=== PATIENT | female | born 1970 | race Caucasian/White ===

== ENCOUNTER 2023-09-09 12:10 | Observation (INO) | payer MEDICAID, SELFPAY ==
[2023-09-09] VITALS (21 sets, daily range): BP systolic 82–146; BP diastolic 54–116; PULSE 69–91; RESP 12–32; TEMP 35.5–36.6; O2SAT 96–100; BMI 21.9
--- NOTE | 2023-09-09 12:34 | ED.RN ---
NO OLD EKG
--- NOTE | 2023-09-09 12:35 | ED.RN ---
POLICE, SOCIAL WORK, NURSES AND FILM PROCESSING SHIFT SUPERVISOR IN PATIENT'S ROOM. PATIENT SCREAMING AND KICKING. PATIENT DECLINED TO ANSWER ANY OF MY QUESTIONS FOR HER CHART. PATIENT STATES THAT THE STAFF DOESN'T CARE . SITTER AT IN ROOM.
[2023-09-09] MEDS: Activated Charcoal/Sorbitol 50 GM/240 ML BOT PO (12:44)
--- NOTE | 2023-09-09 12:46 | EX.ED.VIS.PS ---
HPI HPI - Psych History of Present Illness Chief Complaint: Suicidal Detail of Chief Complaint: Reported intentional overdose Informant: patient, police/junior systems engineer and mental health staff Onset/Context/Timing Onset: Today Context: Gradual Onset Conflict: - (Uncertain) Timing: - (Patient was somnolent when I was in the room. I was informed prior to me entering the room she was awake conversant with nurse and law enforcement.) Current Severity: Concern for malingering Relieved by: Not applicable Associated Symptoms Associated Symptoms - Psych: Positive for Depressed, Change in Eating, Change in sleeping and Suicidal Thoughts; Negative for Grandiosity, Flight of Ideas, Increased activity, Pressured Speech, Agitated, Angry, Hostile, Threatening, Confusion or Paranoia Specific plan (suicidal thought): Reportedly took 27 100 mg tablets of trazodone and potentially other meds. Narrative Narrative: Patient is a 53-year-old woman with history of depression. Per product safety officer she took 27 100 mg tablets of trazodone. Patient is not forthcoming with information. Apparently she relocated from [place]. Her therapist is in [place]. Prior similar symptoms: Yes PFSH PFSH Medical History (Updated 09/09/23 @ 14:[address] Greg Campos MD) Alcohol abuse Bipolar 1 disorder, depressed Depression Drug abuse in remission Restless leg syndrome Home Medications dextromethorphan IR 45 mg-bupropion ER 105 mg biphasic tablet (Auvelity) 1 tab PO DAILY 09/09/23 [History Last Taken Unknown] lumateperone 42 mg capsule (Caplyta) 42 mg PO DAILY 09/09/23 [History Last Taken Unknown] Allergy/AdvReac Type Severity Reaction Status Date / Time Penicillins Allergy PT UNSURE Verified 09/09/23 12:14 OF REACTION Social History (Updated 09/09/23 @ 12:[address] Greg Campos MD) household members: none Smoking Status: Current every day smoker tobacco type: cigarettes ROS ROS ED Constitutional Constitutional ED: Denies fever(s) or subjective Eyes Eyes: Denies blurry vision or change in vision Neurologic Neurologic: Reports headache(s) Psychiatric Psychiatric: Reports depression, suicidal ideation and suicidal thoughts Allergic/Immunologic Allergic/Immunologic ED: Denies mouth swelling, tongue swelling or urticaria EXAM Physical Exam Const Vital Signs: 09/09/23 12:11 09/09/23 12:14 09/09/23 12:18 Temperature 96 F L Temperature Source Temporal Pulse Rate 82 91 Respiratory Rate 32 H 18 Blood Pressure 132/116 H Blood Pressure Mean 121 Pulse Ox 100 98 Oxygen Delivery Method Room Air Room Air 09/09/23 12:50 09/09/23 13:15 09/09/23 13:31 Temperature Temperature Source Pulse Rate 78 69 80 Respiratory Rate 14 14 14 Blood Pressure 97/64 90/66 106/67 Blood Pressure Mean 75 74 80 Pulse Ox Oxygen Delivery Method 09/09/23 13:45 09/09/23 14:00 09/09/23 14:15 Temperature Temperature Source Pulse Rate 74 72 76 Respiratory Rate 14 12 12 Blood Pressure 100/63 98/67 82/54 L Blood Pressure Mean 75 77 63 Pulse Ox Oxygen Delivery Method 09/09/23 14:34 Temperature Temperature Source Pulse Rate 78 Respiratory Rate 16 Blood Pressure 92/55 L Blood Pressure Mean 67 Pulse Ox 97 Oxygen Delivery Method Room Air Positive well nourished and well developed Constitutional Narrative: Patient's hair is dyed green. Vital signs are remarkable for slight elevation of blood pressure. Blood pressure does not make sense in light of barrel and narrow pulse pressure. General Appearance ED: well developed HEENT Reports TM's clear and moist mucous membranes normocephalic and atraumatic Tympanic Membrane ED: Yes TM's clear Eyes PERRL and EOMs intact bilaterally Eyes Narrative: Patient does have nystagmus with lateral gaze. General Eye ED: Negative for pale conjunctiva or scleral icterus Neck no lymphadenopathy, supple and no JVD Resp normal respiratory effort and clear to auscultation bilaterally Cardio S1 normal heart sound, S2 normal heart sound and no murmurs Rate: regular rate Rhythm: regular rhythm GI non-tender, non-distended and no masses Auscultation: normoactive bowel sounds Palpation: soft Extremity normal to inspection Extremity Narrative: No acral cyanosis or clubbing. General Extremety ED: Negative for edema or tenderness General Extremity: Negative for edema Neuro CN's II-XII intact bilaterally and deep tendon reflexes 2+ bilaterally Annmarie Coma Scale: document GCS findings Spontaneous Obeys Commands Oriented 15 Psych cooperative, denies hallucinations and denies homicidal ideation Appearance: appropriate Attitude: calm and evasive Activity / Motor Behavior: psychomotor slowing; Negative for appropriate eye contact Speech: other Thought Process: No normal thought process Thought Content: suicidality Attention / Concentration: other Unable to determine Memory / Cognition: other Patient is evasive and not forthcoming with information. Insight: poor Judgement: poor MDM MDM MDM Narrative Medical decision making narrative: Patient was made NPO. She was placed on a monitor and pulse ox. Workup for mental health overdose was initiated. Since patient is awake and alert with a GCS of 15 she will receive activated charcoal since she reports taking the medicine 2 hours ago. Lab Data Attestation: I reviewed the patient's lab results. Lab results narrative: CBC is unremarkable. Basic metabolic panel is normal. Transaminases normal. Salicylate nondetected. Acetaminophen nondetected. Alcohol is 69. Serum test is negative. Labs: Laboratory Results - last 24 hr 09/09/23 12:25 WBC 8.4 RBC 4.51 Hgb 12.9 Hct 41.2 MCV 91.4 MCH 28.6 MCHC 31.3 L RDW Std Deviation 46.2 H RDW Coeff of Sohail 13.6 Plt Count 337 MPV 9.3 Immature Gran % (Auto) 0.200 Neut % (Auto) 60.8 Lymph % (Auto) 31.1 Price % (Auto) 6.3 Eos % (Auto) 1.2 Baso % (Auto) 0.4 Absolute Neuts (auto) 5.1 Absolute Lymphs (auto) 2.60 Nucleated RBC % 0 Sodium 139 Potassium 3.8 Chloride 110 H Carbon Dioxide 25.0 Anion Gap 4 L BUN 10 Creatinine 0.56 Estim Creat Clear Calc 86.66 Est GFR (MDRD) Af Amer 147 Est GFR (MDRD) Non-Af 121 BUN/Creatinine Ratio 18.0 Glucose 111 H Calcium 8.6 Total Bilirubin 0.30 AST 14 L ALT 17 Alkaline Phosphatase 72 Total Protein 6.6 Albumin 3.1 L Globulin 3.5 Albumin/Globulin Ratio 0.9 Serum , Qual NEGATIVE Salicylates < 1.7 L Acetaminophen < 2.0 L Ethyl Alcohol 69.0 EKG Initial EKG: Attestation: I personally reviewed and interpreted this EKG as follows: Interpretation: Sinus Rhythm (Rate is 71. QT is prolonged. GA interval is 132 ms with a QRS duration 76 ms. QT is 442 with a QTc of 480. [place] is normal.) Treatment and Re-Evaluation Narrative: I was informed that patient's blood pressure is 82/54. Review of blood pressures reveals that patient's trending downward. In light of this IV fluids were ordered. Hospitalist has been paged for admission for observation since she is not hemodynamically stable to be transferred to a psychiatric hospital. She was pink slipped by me. This will allow for a 24-hour hold. Critical Care Time Critical Care Time: Yes Critical care time (excluding procedures): 30-74 minutes (32), Including time spent: (History, physical, obtaining prescriptions from outside facility, interpretation laboratory results, treatment of hypotension, pink slip.), Discussing w/Patient &/or Family/Cold Strip Feeder, Discussing w/Consultants (Discussion with hospitalist for admission stepdown versus ICU) and Arranging Admission or Transfer Discharge Plan Dx/Rx/DC Orders Clinical Impression: Acute hypotension, Intentional overdose, Suicide attempt, Severe depression Disposition Disposition: Acute Care Hospital [facility]
--- NOTE | 2023-09-09 12:49 | CM.ED ---
Social Work SW contacted crisis to see if patient has psych services with [facility]. If patient does, a medication list could be obtained and patient has not been forthcoming with information. Pt does not have services with [facility] or any history of crisis involvement. Natacha Dent INSPECTOR METAL CAN, MUTUAL FUND ACCOUNTANT
[2023-09-09 12:54] LABS: Absolute Neutrophil Count 5.1 X10^3/uL (2.0-7.7); Basophil# 0.03 X10^3/uL; Basophil% 0.4 % (0-1); Eosinophils% 1.2 % (0-5); Hematocrit 41.2 % (37-47); Hemoglobin 12.9 g/dL (12.0-15.0); Lymphocyte % 31.1 % (19-41); Mean Corp Hgb Conc 31.3 g/dL (32-36); Mean Corpuscular Hgb 28.6 pg (27.0-32.0); Mean Corpuscular Volume 91.4 fL (81-99); Mean Platelet Vol. 9.3 fl (6.2-12.0); Monocyte# 0.53 X10^3/uL; Monocyte% 6.3 % (0-10); NRBC Flagged by Analyzer 0 % (0-5); Neutrophil # 5.09 X10^3/uL (2.7-7.7); Neutrophil % 60.8 % (47-70); Platelet Count 337 K/mm3 (150-450); RBC Distribution Width CV 13.6 % (11.6-14.6); RBC Distribution Width SD 46.2 fl (35.1-43.9); Red Blood Count 4.51 M/mm3 (4.2-5.4); White Blood Count 8.4 K/mm3 (4.4-11.0)
[2023-09-09 13:03] LABS: Internal QC Validated? YES +Cl - CLEAR BKGD; Pregnancy, Serum, hCG Quali. NEGATIVE Negative
[2023-09-09 13:13] LABS: ALB/GLOB Ratio 0.9 RATIO (0.9-2.4); AST(SGOT) 14 U/L (15-37); Alanine Aminotransfer ALT/SGPT 17 U/L (13-56); Albumin, Serum 3.1 g/dL (3.2-5.0); Alkaline Phosphatase 72 U/L (45-117); Anion Gap 4 (5-15); BUN 10 mg/dL (7-18); Calcium,Total 8.6 mg/dL (8.5-10.1); Chloride 110 mmol/L (98-107); Creatinine, Serum 0.56 mg/dL (0.55-1.02); EST Glomerular Filtration Rate 121 mL/min (>60); Est Glom Filt Rate - Afr Amer 147 mL/min (>60); Estimated Creatinine Clearance 86.66 ml/min; Globulin 3.5 g/dL (2.2-4.2); Glucose 111 mg/dL (74-106); Potassium 3.8 mmol/L (3.5-5.1); Protein, Total 6.6 g/dL (6.4-8.2); Sodium Level 139 mmol/L (136-145)
[2023-09-09 13:22] LABS: Acetaminophen (Tylenol) Level < 2.0 ug/mL (10.0-30.0); Salicylate < 1.7 mg/dL (2.8-20.0)
[2023-09-09] MEDS: 0.9% Normal Saline (1000mL) 1,000 ML 1000 ML IV (14:33)
--- NOTE | 2023-09-09 15:03 | PCM.HP.STD ---
HPI - General General Date of Admission: 09/09/23 Date of Service: 09/09/23 Chief Complaint: Intentional overdose HPI Narrative BIN ADAMS, is a 53 F with history of mood disorder and tobacco use who presented to [facility] ED 09/09/2023 due to an intentional overdose. History obtained primarily per report as patient downplaying attempt and not very forthcoming. Reportedly patient was drinking this morning and then took a handful of trazodone and her restless leg medication and texted her son that she would not be around anymore and her son found her and patient brought to hospital. In ED she was given charcoal but blood pressure continued to downtrend so she was started on IV fluids and hospitalist contacted for admission for medical stabilization prior to crisis evaluation. Patient evaluated at bedside and reports that she took trazodone earlier just to get some rest and did not know how much she took, she said she took more of her restless leg medicine than prescribed because trazodone gives her restless legs she wanted to counteract the side effect. She said that she is willing to be admitted here today however she cannot go anywhere else or she will lose her furniture and her cats and it will cause more mental health problems and she already has. Presently denies any physical complaints, does report drinking a couple of beers earlier but said she only drinks several times a week and denies any history of withdrawal or daily drinking, denies any other drug use, smokes about half a pack a day and does not want nicotine patch. Patient superficially cooperative, unable to get any other history at this time. [facility] Medical History (Updated 09/09/23 @ 14:[address] Greg Campos MD) Alcohol abuse Bipolar 1 disorder, depressed Depression Drug abuse in remission Restless leg syndrome Home Medications dextromethorphan IR 45 mg-bupropion ER 105 mg biphasic tablet (Auvelity) 1 tab PO DAILY 09/09/23 [History Last Taken Unknown] lumateperone 42 mg capsule (Caplyta) 42 mg PO DAILY 09/09/23 [History Last Taken Unknown] Allergy/AdvReac Type Severity Reaction Status Date / Time Penicillins Allergy PT UNSURE Verified 09/09/23 12:14 OF REACTION Social History (Updated 09/09/23 @ 12:[address] Greg Campos MD) household members: none Smoking Status: Current every day smoker tobacco type: cigarettes ROS ROS Narrative General: Denies fever/chills HENT: Denies headache, denies stuffy nose, denies sore throat EYES: Denies changes in vision Resp: Denies cough, denies shortness of breath Cardiac: Denies chest pain GI: Denies abdominal pain, denies changes in bowel, denies nausea/vomiting : Denies changes in urination Extremity: Denies swelling MSK: Denies weakness Neuro: Denies any numbness/tingling Heme: Denies any bleeding or bruising Skin: Denies rashes Psychiatric: Wants to go home Vital Signs Vital Signs Vital Signs: 09/09/23 12:11 09/09/23 12:14 09/09/23 12:18 Temperature 96 F L Temperature Source Temporal Pulse Rate 82 91 Respiratory Rate 32 H 18 Blood Pressure 132/116 H Blood Pressure Mean 121 Pulse Ox 100 98 Oxygen Delivery Method Room Air Room Air 09/09/23 12:50 09/09/23 13:15 09/09/23 13:31 Temperature Temperature Source Pulse Rate 78 69 80 Respiratory Rate 14 14 14 Blood Pressure 97/64 90/66 106/67 Blood Pressure Mean 75 74 80 Pulse Ox Oxygen Delivery Method 09/09/23 13:45 09/09/23 14:00 09/09/23 14:15 Temperature Temperature Source Pulse Rate 74 72 76 Respiratory Rate 14 12 12 Blood Pressure 100/63 98/67 82/54 L Blood Pressure Mean 75 77 63 Pulse Ox Oxygen Delivery Method 09/09/23 14:34 Temperature Temperature Source Pulse Rate 78 Respiratory Rate 16 Blood Pressure 92/55 L Blood Pressure Mean 67 Pulse Ox 97 Oxygen Delivery Method Room Air Weight Weight: 52.5 kg Body Mass Index (BMI) 21.9 Physical Exam Narrative General: Alert, oriented, no apparent distress HEENT: Atraumatic, normocephalic Eyes: Anicteric, normal conjunctiva, extraocular movements grossly intact Neck: Supple Respiratory: Clear to auscultation bilaterally, normal respiratory effort Cardiovascular: Regular rate and rhythm GI: Soft, nontender, nondistended Extremities: No edema Musculoskeletal: Moving all extremities Neuro: No overt focal neurological deficits Skin: No rashes appreciated Psych: Irritable, superficially cooperative, not forthcoming Results Lab / Micro Data 09/09/23 12:25 09/09/23 12:25 Labs: Laboratory Results - last 24 hr 09/09/23 12:25: WBC 8.4, RBC 4.51, Hgb 12.9, Hct 41.2, MCV 91.4, MCH 28.6, MCHC 31.3 L, RDW Std Deviation 46.2 H, RDW Coeff of Sohail 13.6, Plt Count 337, MPV 9.3, Immature Gran % (Auto) 0.200, Neut % (Auto) 60.8, Lymph % (Auto) 31.1, [place] % (Auto) 6.3, Eos % (Auto) 1.2, Baso % (Auto) 0.4, Absolute Neuts (auto) 5.1, Absolute Lymphs (auto) 2.60, Nucleated RBC % 0, Sodium 139, Potassium 3.8, Chloride 110 H, Carbon Dioxide 25.0, Anion Gap 4 L, BUN 10, Creatinine 0.56, Estim Creat Clear Calc 86.66, Est GFR (MDRD) Af Amer 147, Est GFR (MDRD) Non-Af 121, BUN/Creatinine Ratio 18.0, Glucose 111 H, Calcium 8.6, Total Bilirubin 0.30, AST 14 L, ALT 17, Alkaline Phosphatase 72, Total Protein 6.6, Albumin 3.1 L, Globulin 3.5, Albumin/Globulin Ratio 0.9, Serum , Qual NEGATIVE, Salicylates < 1.7 L, Acetaminophen < 2.0 L, Ethyl Alcohol 69.0 Assessment & Plan Assessment/Plan (1) Acute hypotension: (2) Intentional overdose: (3) Severe depression: (4) Suicide attempt: PLAN: Plan # Intentional overdose with hypotension -Patient took trazodone, roughly 27 100 mg tabs per report as well as her restless leg medication but unclear which medication that is -Given charcoal in ED -Started on IV fluids, patient reports blood pressure runs low but given its continued downtrend will admit to ICU in the event patient needs escalation of supportive care to maintain perfusion -Patient awake and alert in ED however -Did have alcohol level of 69, patient denies drinking more than several times a week however not forthcoming so started on CIWA with low-dose Ativan coverage can escalate accordingly if patient has symptoms of withdrawal -UDS pending -Continue IV fluids -Crisis evaluation, likely tomorrow if patient stable, case management consulted -EKG with normal sinus rhythm rate of 71 QTc 480 #Tobacco use -Advise cessation -Nicotine replacement available if desired # Depression -Status post intentional overdose -Will continue home medications which does not include trazodone #DVT ppx: Low risk, ambulatory Marianne Mcnulty MD Charges/Coding Visit Charges Inpatient E&M: 28402 Init Hosp L1
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
[2023-09-09 18:56] LABS: Amphetamine Urine VISTA POSITIVE (<1000 ng/mL); Barbiturate Urine VISTA NEGATIVE (< 200 ng/mL); Benzodiazepine Urine VISTA NEGATIVE (< 200 ng/mL); Cocaine Urine VISTA NEGATIVE (< 300 ng/mL); Ecstacy Urine VISTA POSITIVE (< 500 ng/mL); Methadone Urine VISTA NEGATIVE (< 300 ng/mL); PCP Urine VISTA NEGATIVE (< 25 ng/mL); THC Urine VISTA POSITIVE (< 50 ng/mL); Vista UDS pH Range 4
[2023-09-09] MEDS: Pantoprazole Sodium 40 MG Tablet PO (21:46)
[2023-09-09] MEDS: MELATONIN 3 MG TABLET PO (21:46)
[2023-09-09] MEDS: Mag Hydrox/Al Hydrox/Simeth 30 ML UDC PO (21:46)
[2023-09-09] MEDS: Ibuprofen 600 MG Tablet PO (23:31)
[2023-09-10] VITALS (13 sets, daily range): BP systolic 90–146; BP diastolic 62–84; PULSE 64–90; RESP 13–20; TEMP 36.6–37.1; O2SAT 95–99; BMI 21.4
[2023-09-10 05:09] LABS: Absolute Lymphocyte Count 3.52 X10^3/uL (0.83-4.51); Absolute Neutrophil Count 4.7 X10^3/uL (2.0-7.7); Basophil# 0.04 X10^3/uL; Basophil% 0.4 % (0-1); Eosinophil# 0.12 X10^3/uL; Eosinophils% 1.3 % (0-5); Hematocrit 37.3 % (37-47); Hemoglobin 11.8 g/dL (12.0-15.0); Lymphocyte # 3.52 X10^3/ul (0.83-4.51); Lymphocyte % 38.2 % (19-41); Mean Corp Hgb Conc 31.6 g/dL (32-36); Mean Corpuscular Hgb 28.9 pg (27.0-32.0); Mean Corpuscular Volume 91.4 fL (81-99); Mean Platelet Vol. 8.7 fl (6.2-12.0); Monocyte# 0.86 X10^3/uL; Monocyte% 9.3 % (0-10); NRBC Flagged by Analyzer 0 % (0-5); Neutrophil # 4.65 X10^3/uL (2.7-7.7); Neutrophil % 50.6 % (47-70); Platelet Count 338 K/mm3 (150-450); RBC Distribution Width CV 13.8 % (11.6-14.6); RBC Distribution Width SD 46.5 fl (35.1-43.9); Red Blood Count 4.08 M/mm3 (4.2-5.4); White Blood Count 9.2 K/mm3 (4.4-11.0)
[2023-09-10 05:41] LABS: ALB/GLOB Ratio 0.8 RATIO (0.9-2.4); AST(SGOT) 14 U/L (15-37); Alanine Aminotransfer ALT/SGPT 20 U/L (13-56); Albumin, Serum 2.7 g/dL (3.2-5.0); Alkaline Phosphatase 69 U/L (45-117); Anion Gap 2 (5-15); BUN 7 mg/dL (7-18); BUN/Creat Ratio 9.9 RATIO (10-20); Calcium,Total 8.1 mg/dL (8.5-10.1); Chloride 110 mmol/L (98-107); Creatinine, Serum 0.71 mg/dL (0.55-1.02); EST Glomerular Filtration Rate 92 mL/min (>60); Est Glom Filt Rate - Afr Amer 111 mL/min (>60); Estimated Creatinine Clearance 68.35 ml/min; Globulin 3.3 g/dL (2.2-4.2); Glucose 140 mg/dL (74-106); Potassium 3.4 mmol/L (3.5-5.1); Sodium Level 138 mmol/L (136-145)
--- NOTE | 2023-09-10 07:26 | PN.HOSP_ITS ---
Reason for Visit Reason for Visit: Diagnoses Major depressive disorder, single episode, severe without psychotic features (0 09/09/23) Hypotension, unspecified (09/09/23) Suicide attempt, initial encounter (09/09/23) Poisoning by unspecified drugs, medicaments and biological substances, intentional self-harm, initial encounter (09/09/23) Subjective Subjective Patient is a 53-year-old lady with history of mood disorder admitted with intentional drug overdose Objective Data Objective Data Vital Signs: Vital Signs Temp Pulse Resp BP Pulse Ox O2 Del Method O2 Flow Rate 98.2 F 67 15 115/76 95 Room Air 2 09/10/23 04:00 09/10/23 07:00 09/10/23 07:00 09/10/23 07:00 09/10/23 07:00 09/10/23 07:00 09/10/23 00:00 Oxygen Flow Rate (L/min) 2 Oxygen Delivery Method Room Air Weight: 51.6 kg Body Mass Index (BMI) 21.4 Intake & Output: Intake and Output for Last 24 Hours 09/08/23 09/09/23 09/10/23 23:59 23:59 23:59 Intake Total 1550 / 1670 760 / 760 Output Total 0 / 0 700 / 700 Balance 1550 / 1670 60 / 60 Lab / Micro Data 09/10/23 04:55 09/10/23 04:55 Labs: Laboratory Results - last 24 hr 09/09/23 12:25: WBC 8.4, RBC 4.51, Hgb 12.9, Hct 41.2, MCV 91.4, MCH 28.6, MCHC 31.3 L, RDW Std Deviation 46.2 H, RDW Coeff of Sohail 13.6, Plt Count 337, MPV 9.3, Immature Gran % (Auto) 0.200, Neut % (Auto) 60.8, Lymph % (Auto) 31.1, [place] % (Auto) 6.3, Eos % (Auto) 1.2, Baso % (Auto) 0.4, Absolute Neuts (auto) 5.1, Absolute Lymphs (auto) 2.60, Nucleated RBC % 0, Sodium 139, Potassium 3.8, Chloride 110 H, Carbon Dioxide 25.0, Anion Gap 4 L, BUN 10, Creatinine 0.56, Estim Creat Clear Calc 86.66, Est GFR (MDRD) Af Amer 147, Est GFR (MDRD) Non-Af 121, BUN/Creatinine Ratio 18.0, Glucose 111 H, Calcium 8.6, Total Bilirubin 0.3 0, AST 14 L, ALT 17, Alkaline Phosphatase 72, Total Protein 6.6, Albumin 3.1 L, Globulin 3.5, Albumin/Globulin Ratio 0.9, Serum , Qual NEGATIVE, Salicylates < 1.7 L, Acetaminophen < 2.0 L, Ethyl Alcohol 69.0 09/09/23 17:49: Urine Opiates Screen NEGATIVE, Urine Methadone Screen NEGATIVE, Ur Barbiturates Screen NEGATIVE, Ur Phencyclidine Scrn NEGATIVE, Ur Amphetamines Screen POSITIVE H, MDMA (Ecstasy) Screen POSITIVE H, U Benzodiazepines Scrn NEGATIVE, Urine Cocaine Screen NEGATIVE, U Cannabinoids Screen POSITIVE H, Ur Drug Screen Comment 09/10/23 04:55: WBC 9.2, RBC 4.08 L, Hgb 11.8 L, Hct 37.3, MCV 91.4, MCH 28.9, M CHC 31.6 L, RDW Std Deviation 46.5 H, RDW Coeff of Sohail 13.8, Plt Count 338, MPV 8.7, Immature Gran % (Auto) 0.200, Neut % (Auto) 50.6, Lymph % (Auto) 38.2, [place] % (Auto) 9.3, Eos % (Auto) 1.3, Baso % (Auto) 0.4, Absolute Neuts (auto) 4.7, Absolute Lymphs (auto) 3.52, Nucleated RBC % 0, Sodium 138, Potassium 3.4 L, Chloride 110 H, Carbon Dioxide 26.0, Anion Gap 2 L, BUN 7, Creatinine 0.71, Estim Creat Clear Calc 68.35, Est GFR (MDRD) Af Amer 111, Est GFR (MDRD) Non-Af 92, BUN/Creatinine Ratio 9.9 L, Glucose 140 H, Calcium 8.1 L, Total Bilirubin 0.20, AST 14 L, ALT 20, Alkaline Phosphatase 69, Total Protein 6.0 L, Albumin 2.7 L, Globulin 3.3, Albumin/Globulin Ratio 0.8 L Physical Exam Narrative GENERAL: Appears agitated HEENT: Swelling involving the right cheek EYES; Anicteric, Normal Conjunctiva NECK; supple, normal thyroid, RESPIRATORY: Diminished to auscultation CARDIOVASCULAR: Regular S1 S2, GI: soft, normoactive bowel sounds, : No Renal angle tenderness; EXTREMITIES: No edema, no clubbing, MUSCULOSKELETAL: no muscle wasting NEURO: Awake; no lateralizing signs. SKIN: No Rash PSYCH; Flat affect Assessment & Plan Assessment/Plan (1) Acute hypotension: (2) Intentional overdose: (3) Severe depression: (4) Suicide attempt: PLAN: Plan Patient is a 53-year-old lady with history of mood disorder admitted with intentional drug overdose 1. Intentional drug overdose ? Patient apparently took 27 tablets of 100 mg of trazodone. Patient did receive activated charcoal in the ED started on IV fluids admitted to the intensive care unit for further management 2. Acute alcohol intoxication ? Alcohol level was 69 patient started on Ativan with CIWA protocol 3. Dental abscess ? Patient started on Augmentin 4. Depression ? Intentional drug overdose 5. Tobacco dependence - Counseled on cessation, offered nicotine patch for tobacco cravings 6. Hypokalemia -Corrected per protocol 7. DVT prophylaxis ? Low risk Patient is medically stable to be evaluated by the crisis team Time spent in the patient's overall evaluation,decision-making process, review of diagnostic data, adjustment of management, discussion with other providers, nursing nursing and ancillary staff involved in patient's care documentation, 50 Minutes Charges/Coding Visit Charges Inpatient E&M: 58987 [facility] Hosp L3
[2023-09-10] MEDS: Ibuprofen 400 MG Tablet PO ×2 (09:33→14:17)
[2023-09-10] MEDS: Pantoprazole Sodium 40 MG Tablet PO (09:33)
--- NOTE | 2023-09-10 16:58 | DS.PCM_ITS ---
Providers Date of Admission: 09/09/23 Date of Discharge: 09/10/23 Primary Care Physician: No Primary Care Phys Reason For Visit: INTENTIONAL OVERDOSE Diagnosis Discharge Diagnosis (1) Acute hypotension: Status: Acute Code(s): I95.9 - Hypotension, unspecified (2) Intentional overdose: Status: Acute Code(s): T50.902A - Poisoning by unspecified drugs, medicaments and biological substances, intentional self-harm, initial encounter (3) Severe depression: Status: Acute Code(s): F32.2 - Major depressive disorder, single episode, severe without psychotic features (4) Suicide attempt: Status: Acute Code(s): T14.91XA - Suicide attempt, initial encounter Plan Patient is a 53-year-old lady with history of mood disorder admitted with intentional drug overdose 1. Intentional drug overdose ? Patient apparently took 27 tablets of 100 mg of trazodone. Patient did receive activated charcoal in the ED started on IV fluids admitted to the intensive care unit for further management 2. Acute alcohol intoxication ? Alcohol level was 69 patient started on Ativan with CIWA protocol 3. Dental abscess ? Patient started on Augmentin 4. Depression ? Intentional drug overdose 5. Tobacco dependence - Counseled on cessation, offered nicotine patch for tobacco cravings 6. Hypokalemia -Corrected per protocol 7. DVT prophylaxis ? Low risk Patient is medically stable to be evaluated by the crisis team Time spent in the patient's overall evaluation,decision-making process, review of diagnostic data, adjustment of management, discussion with other providers, nursing nursing and ancillary staff involved in patient's care documentation, 50 Minutes Medications at Discharge Home Medications dextromethorphan IR 45 mg-bupropion ER 105 mg biphasic tablet (Auvelity) 1 tab PO DAILY 09/09/23 famotidine 20 mg tablet 20 mg PO DAILY heartburn 09/09/23 lumateperone 42 mg capsule (Caplyta) 42 mg PO DAILY 09/09/23 pramipexole 1 mg tablet 1 mg PO QHS restless leg 09/09/23 trazodone 100 mg tablet 100 mg PO QHS PRN insomnia 09/09/23 Physical Exam Narrative GENERAL: Appears agitated HEENT: Swelling involving the right cheek EYES; Anicteric, Normal Conjunctiva NECK; supple, normal thyroid, RESPIRATORY: Diminished to auscultation CARDIOVASCULAR: Regular S1 S2, GI: soft, normoactive bowel sounds, : No Renal angle tenderness; EXTREMITIES: No edema, no clubbing, MUSCULOSKELETAL: no muscle wasting NEURO: Awake; no lateralizing signs. SKIN: No Rash PSYCH; Flat affect Weight / BMI Weight Weight: 51.6 kg Body Mass Index (BMI) 21.4 ABG / Lab / Microbiology Data 09/10/23 04:55 09/10/23 04:55 Laboratory: Laboratory Results - last 24 hr 09/09/23 17:49: Urine Opiates Screen NEGATIVE, Urine Methadone Screen NEGATIVE, Ur Barbiturates Screen NEGATIVE, Ur Phencyclidine Scrn NEGATIVE, Ur Amphetamines Screen POSITIVE H, MDMA (Ecstasy) Screen POSITIVE H, U Benzodiazepines Scrn NEG ATIVE, Urine Cocaine Screen NEGATIVE, U Cannabinoids Screen POSITIVE H, Ur Drug Screen Comment 09/10/23 04:55: WBC 9.2, RBC 4.08 L, Hgb 11.8 L, Hct 37.3, MCV 91.4, MCH 28.9, MCHC 31.6 L, RDW Std Deviation 46.5 H, RDW Coeff of Sohail 13.8, Plt Count 338, MPV 8.7, Immature Gran % (Auto) 0.200, Neut % (Auto) 50.6, Lymph % (Auto) 38.2, [place] % (Auto) 9.3, Eos % (Auto) 1.3, Baso % (Auto) 0.4, Absolute Neuts (auto) 4.7, Absolute Lymphs (auto) 3.52, Nucleated RBC % 0, Sodium 138, Potassium 3.4 L, Chloride 110 H, Carbon Dioxide 26.0, Anion Gap 2 L, BUN 7, Creatinine 0.71, Estim Creat Clear Calc 68.35, Est GFR (MDRD) Af Amer 111, Est GFR (MDRD) Non-Af 92, BUN/Creatinine Ratio 9.9 L, Glucose 140 H, Calcium 8.1 L, Total Bilirubin 0.20, AST 14 L, ALT 20, Alkaline Phosphatase 69, Total Protein 6.0 L, Albumin 2.7 L, Globulin 3.3, Albumin/Globulin Ratio 0.8 L Microbiology: Microbiology 09/10/23 15:15 Nasal Secretion SARS-CoV-2 Antigen (Rapid) - Final D/C Instructions Discharge Diet: No restrictions Discharge Activity: Return to Normal Activity Call your doctor if you observe: Fever of 101 or Higher, Shortness of breath, Fainting spells and Chest pain Meaningful Use Info Meaningful Use Diagnoses (Choose all that apply): None applicable Discharge Plan Admission Admit Date/Time: 09/09/23 15:03 Attending Provider: Brian Worthington Primary Care Provider: Care Physician,No Primary Consulting Providers: Marianne Mcnulty Discharge Orders/Prescriptions Prescriptions: No Action Auvelity 45-105 mg tablet, IR and ER, biphasic 1 tab PO DAILY Patient Comments: TAKE ONE TABLET BY MOUTH EVERY MORNING Caplyta 42 mg capsule 42 mg PO DAILY Patient Comments: TAKE ONE TABLET BY MOUTH EVERY MORNING trazodone 100 mg tablet 100 mg PO QHS PRN (Reason: insomnia) famotidine 20 mg tablet 20 mg PO DAILY Patient Comments: take 1 tablet by mouth twice a day pramipexole 1 mg tablet 1 mg PO QHS Patient Comments: take 1 tablet by mouth nightly Referrals / Follow Up: Care Physician,No Primary [Primary Care Provider] - Disposition Disposition (needs filled in before D/C Order can be placed): [facility] Charges/Coding Visit Charges Inpatient E&M: 73441 Disch Hosp >30min
--- NOTE | 2023-09-10 22:45 | NURSING ---
Addendum entered by Viktoria Colorado 09/11/23 00:21: Time of event 2330, not 2245. Original Note: Pt becoming increasingly agitated, yelling and manically crying. Sitter at bedside. Multiple attempts w/ security and staff members to redirect pt which were unsuccessful. Pt observed on camera to kick the bedside table over, punch and kick the bed, shake the side rails, and hit the bedside monitor. Multiple staff members and security in room, pt verbally abusive to staff.
--- NOTE | 2023-09-10 22:48 | NURSING ---
Addendum entered by Viktoria Colorado 09/11/23 00:22: Pt updated after phone call that her boyfriend stated her cats were being taken care of. Original Note: Pt asking to call her boyfriend to make sure that her cats were taken care of since she had received a 3 day notice of needing to leave. Pt given her phone to retrieve the phone number for her boyfriend Lesvia. Pt informed that she has a bed at [facility]. Security on unit as well. Pt asked that Lesvia be informed of her going to [facility]. Lesvia called and informed of pt status and acknowledged that pt's cats were safe and being taken care of.
--- NOTE | 2023-09-11 01:51 | NURSING ---
[facility] arrived, pt loaded onto coat with belongings given to transport team. [facility] called and updated on new ETA.
== END 2023-09-11 01:50 | DRG 817 ==
LOC: ED 14:59 → ICU 09-10 07:10
PROVIDERS: Admitting Provider Internal Medicine; Emergency Provider Emergency Medicine; Visit Provider Internal Medicine
DX: T43.212A Poisoning by selective serotonin and norepinephrine reuptake inhibitors, intentional self-harm, initial encounter (principal); F32.2 Major depressive disorder, single episode, severe without psychotic features; T51.92XA Toxic effect of unspecified alcohol, intentional self-harm, initial encounter; I95.2 Hypotension due to drugs; G25.81 Restless legs syndrome; K04.7 Periapical abscess without sinus; E87.6 Hypokalemia; F17.210 Nicotine dependence, cigarettes, uncomplicated; Y90.3 Blood alcohol level of 60-79 mg/100 ml
CPT/HCPCS: 80053; 80307; 80320; 80329; 84703; 85025; 87811; 93005; 96360; 96361; 99221; 99285; J7030; A4216; G0378; G0480

== ENCOUNTER 2023-12-13 04:51 | Emergency (ER) | payer MEDICAID, SELFPAY ==
[2023-12-13 04:52] VITALS: BP 151/86; PULSE 85; RESP 16; TEMP 36.4; O2SAT 99; BMI 22.8
--- NOTE | 2023-12-13 06:43 | EX.ED.VIS.UR ---
HPI HPI - URI History of Present Illness Chief Complaint: Ear Problem Informant: patient Onset/Context/Timing Onset: Days (2) Context: Sudden Onset Timing: Waxes and wanes Quality: Sharp, aching Location: Right ear Worsened by: - (Nothing) Relieved by: - (Applying pressure to her right ear) Associated Symptoms Associated Symptoms: Positive for Headache; Negative for Nasal Congestion, Sinus Pressure, Myalgias, Nausea, Vomiting, Diarrhea, Shortness of Breath, Chest Pain, Nonproductive cough, Hemoptysis or Productive Cough Narrative Narrative: Patient presents with right ear pain that has been getting worse over the past 2 days. Patient states it began rather suddenly. Patient states it has been waxing and waning over the past 2 days. Patient describes it as sharp and aching. Patient states it is localized to the right ear. Patient states it is better when she is able to put some pressure onto her right ear. Patient states nothing makes it worse. Patient admits to some subjective chills. Patient admits to some nausea. Patient states her pain radiates into her neck. Patient denies any cough. ROS ROS ED Constitutional Constitutional ED: Reports chills; Denies fever(s) Eyes Eyes: Reports blurry vision; Denies diplopia ENT ENT ED: Reports ear pain right; Denies rhinorrhea or sore throat Cardiovascular Cardiovascular: Denies chest pain or palpitations Respiratory/Chest Respiratory/Chest: Denies cough or dyspnea Gastrointestinal Gastrointestinal: Reports nausea; Denies vomiting Genitourinary Genitourinary ED: Denies dysuria or hematuria Musculoskeletal Musculoskeletal: Reports neck pain; Denies back pain Integumentary Denies abscess or rash Neurologic Neurologic: Reports headache(s); Denies weakness Allergic/Immunologic Allergic/Immunologic ED: Denies mouth swelling or urticaria [facility] Medical History (Updated 12/13/23 @ 06:[address] Patricio Petersen, DO) Alcohol abuse Bipolar 1 disorder, depressed Depression Drug abuse in remission Restless leg syndrome Home Medications dextromethorphan IR 45 mg-bupropion ER 105 mg biphasic tablet (Auvelity) 1 tab PO DAILY 09/09/23 [History Last Taken Unknown] lumateperone 42 mg capsule (Caplyta) 42 mg PO DAILY 09/09/23 [History Last Taken Unknown] pramipexole 1 mg tablet 1 mg PO QHS restless leg 09/09/23 [History Last Taken 09/09/23] azithromycin 250 mg tablet 250 mg PO DAILY #4 TABLETS 12/13/23 [Rx Last Taken Unknown] Allergy/AdvReac Type Severity Reaction Status Date / Time Penicillins Allergy PT UNSURE Verified 09/09/23 12:14 OF REACTION acetaminophen [From Tylenol] AdvReac Mild Other Verified 09/09/23 23:18 aspirin AdvReac Mild Other Verified 09/09/23 23:18 Surgical History (Updated 12/13/23 @ 06:[address] Patricio Petersen DO) History of endometrial ablation Hx of hemorrhoidectomy Hx of inguinal herniorrhaphy Hx of tonsillectomy Social History household members: none Smoking Status: Current every day smoker tobacco type: cigarettes EXAM Physical Exam Const Vital Signs: 12/13/23 04:52 Temperature 97.6 F L Temperature Source Oral Pulse Rate 85 Respiratory Rate 16 Blood Pressure 151/86 H Blood Pressure Mean 107 Pulse Ox 99 Positive well nourished and well developed General Appearance ED: well developed and NAD HEENT Reports moist mucous membranes HEENT Narrative: The right tympanic membrane was erythematous and bulging. Left tympanic membrane was clear. normocephalic Throat: posterior oropharynx normal Eyes PERRL and EOMs intact bilaterally Neck supple, no meningeal signs and no JVD Neuro oriented x3, CN's II-XII intact bilaterally and no sensory deficits noted Sensorium / Orientation: alert Motor Exam: strength 5/5 throughout Psych mental status grossly normal MDM MDM MDM Narrative Medical decision making narrative: Patient was advised that she has right otitis media. Patient was given a dose of Zithromax here. Patient was given a prescription for Zithromax. Patient was instructed to follow-up with her primary care physician in 5 to 7 days. Patient was instructed return if worse in any way. Patient was instructed to take ibuprofen as needed for pain. Patient understood and was agreeable with the plan. All questions were answered. Discharge Plan Triage Chief Complaint: Ear Problem ED Provider: Patricio Petersen Dx/Rx/DC Orders Clinical Impression: Acute right otitis media, Tobacco use disorder Instructions: ED Otitis Media Adult Prescriptions: New azithromycin [azithromycin] 250 mg tablet 250 mg PO DAILY Qty: 4 0RF No Action Auvelity 45-105 mg tablet, IR and ER, biphasic 1 tab PO DAILY Patient Comments: TAKE ONE TABLET BY MOUTH EVERY MORNING Caplyta 42 mg capsule 42 mg PO DAILY Patient Comments: TAKE ONE TABLET BY MOUTH EVERY MORNING pramipexole 1 mg tablet 1 mg PO QHS Patient Comments: take 1 tablet by mouth nightly Primary Care Provider: Care Physician,No Primary Referrals: Gloria Cesar [Non-Staff] - 5-7 Days Care Physician,No Primary [Primary Care Provider] - Disposition Disposition: Home, Self Care
[2023-12-13 07:01] VITALS: BP 113/76; PULSE 87; RESP 16; TEMP 36.7; O2SAT 97
[2023-12-13] MEDS: Azithromycin 250 MG Tablet 500 MG PO (07:03)
== END 2023-12-13 07:04 | disposition home or self-care (01) ==
PROVIDERS: Emergency Provider Emergency Medicine; Visit Provider Emergency Medicine
DX: H66.91 Otitis media, unspecified, right ear (principal); R51.9 Headache, unspecified; M54.2 Cervicalgia; F17.210 Nicotine dependence, cigarettes, uncomplicated; Z79.899 Other long term (current) drug therapy
CPT/HCPCS: 99282

== ENCOUNTER 2024-01-27 19:42 | Emergency (ER) | payer MEDICAID, SELFPAY ==
[2024-01-27 19:44] VITALS: BP 97/76; PULSE 90; RESP 20; TEMP 36.6; O2SAT 97
--- NOTE | 2024-01-27 20:28 | EX.ED.DYSGE1 ---
HPI History of Present Illness Chief Complaint: Med Refill Detail of Chief Complaint: Requesting medication refill Informant: patient Narrative Narrative: Patient requesting a refill on her restless leg medication pramipexole. Patient states that she ran out 2 days ago. Patient moved to the area recently and does not have a primary care physician established. Patient has been dealing with this since 2004. Denies any other complaints. [facility] Medical History (Updated 01/27/24 @ 20:[address] Yoana Pierson, DO) Restless leg syndrome Alcohol abuse Drug abuse in remission Depression Bipolar 1 disorder, depressed Home Medications ?Medication ?Instructions ?Recorded ?Last Taken ?Type dextromethorphan IR 45 1 tab PO DAILY 09/09/23 Unknown History mg-bupropion ER 105 mg biphasic tablet (Auvelity) lumateperone 42 mg capsule 42 mg PO DAILY 09/09/23 Unknown History (Caplyta) pramipexole 1 mg tablet 1 mg PO QHS restless leg 09/09/23 09/09/23 History azithromycin 250 mg tablet 250 mg PO DAILY #4 TABLETS 12/13/23 Unknown Rx pramipexole 1 mg tablet 1 mg PO QHS #30 tabs 01/27/24 Unknown Rx Allergy/AdvReac Type Severity Reaction Status Date / Time Penicillins Allergy PT UNSURE Verified 01/27/24 19:44 OF REACTION acetaminophen (From Tylenol) AdvReac Mild Other Verified 01/27/24 19:44 aspirin AdvReac Mild Other Verified 01/27/24 19:44 Surgical History Hx of tonsillectomy Hx of inguinal herniorrhaphy Hx of hemorrhoidectomy History of endometrial ablation Social History household members: none Smoking Status: Current every day smoker tobacco type: cigarettes ROS ROS ED Review of Systems ROS Unobtainable: other Constitutional Constitutional ED: Reports lethargy; Denies chills, fever(s), sweats or weight loss Eyes Eyes: Denies blurry vision, change in vision or diplopia ENT ENT ED: Denies rhinorrhea or sore throat Cardiovascular Cardiovascular: Denies chest pain, orthopnea or racing heartbeat Respiratory/Chest Respiratory/Chest: Denies cough, dyspnea, dyspnea on exertion, orthopnea or sputum Gastrointestinal Gastrointestinal: Denies abdominal pain, diarrhea, nausea or vomiting Genitourinary Genitourinary ED: Denies dysuria, hematuria or urinary frequency Musculoskeletal Musculoskeletal: Denies arthralgias, back pain, myalgias or neck pain Integumentary Denies abscess, Abrasions or rash Neurologic Neurologic: Reports other Details: Restless legs ; Denies headache(s) or weakness Psychiatric Psychiatric: Denies anxiety, depression or suicidal thoughts Endocrine Endocrinology: Denies polydipsia, polyphagia or polyuria Hematologic/Lymphatic Hematologic/Lymphatic: Denies easy bleeding, easy bruising or lymphadenopathy Allergic/Immunologic Allergic/Immunologic ED: Denies mouth swelling, tongue swelling or urticaria EXAM Physical Exam Const Vital Signs: 01/27/24 19:44 Temperature 97.9 F Temperature Source Temporal Pulse Rate 90 Respiratory Rate 20 H Blood Pressure 97/76 Blood Pressure Mean 83 Pulse Ox 97 Oxygen Delivery Method Room Air Positive well nourished and well developed General Appearance ED: well developed and NAD HEENT Reports TM's clear and moist mucous membranes normocephalic and atraumatic; Negative for trauma or tenderness Tympanic Membrane ED: Yes TM's clear Eyes PERRL and EOMs intact bilaterally General Eye ED: Negative for pale conjunctiva or scleral icterus Neck no lymphadenopathy, supple and no JVD General: Negative for tenderness Chest Wall inspection of chest normal and palpation of chest normal Chest: Negative for tenderness Resp normal respiratory effort and clear to auscultation bilaterally Effort and Inspection: Negative for respiratory distress or pain with movement Auscultation: Negative for rhonchi, wheezes or diminished lung sounds Cardio regular rate, regular rhythm, S1 normal heart sound, S2 normal heart sound and no murmurs Peripheral Pulses: pulses 2+ throughout GI normal to inspection, nondistended, normoactive bowel sounds, soft to palpation, non-tender, non-distended and no masses Back/Spine no CVA tenderness and no thoracic nor lumbar tenderness Extremity normal to inspection Extremity Narrative: Legs constantly moving and restless. General Extremety ED: Negative for edema General Extremity: Negative for edema Neuro oriented x3, CN's II-XII intact bilaterally, no sensory deficits noted and gait normal Sensorium / Orientation: awake, alert, oriented to person, oriented to place and oriented to time Motor Exam: strength 5/5 throughout and strength abnormal Psych mental status grossly normal Skin no rashes or lesions noted and no wounds MDM MDM MDM Narrative Medical decision making narrative: Patient presents to the emergency department with restless legs. Ran out of her medications 2 days ago. I will write her a prescription for the pramipexole. Patient will be referred to primary care physician on-call for no doc for follow-up. Discharge Plan Triage Chief Complaint: Med Refill ED Provider: Yoana Pierson Dx/Rx/DC Orders Clinical Impression: Restless leg syndrome Instructions: RLS, Med Refill Prescriptions: New pramipexole 1 mg tablet 1 mg PO QHS Qty: 30 0RF No Action azithromycin 250 mg tablet 250 mg PO DAILY Qty: 4 0RF Auvelity 45-105 mg tablet, IR and ER, biphasic 1 tab PO DAILY Patient Comments: TAKE ONE TABLET BY MOUTH EVERY MORNING Caplyta 42 mg capsule 42 mg PO DAILY Patient Comments: TAKE ONE TABLET BY MOUTH EVERY MORNING pramipexole 1 mg tablet 1 mg PO QHS Patient Comments: take 1 tablet by mouth nightly Primary Care Provider: Care Physician,No Primary Referrals: Patricio Vega MD [Med Staff - Pesticide Control Inspector] - 3-5 Days Care Physician,No Primary [Primary Care Provider] - Print Language: [place] Disposition Disposition: Home, Self Care
== END 2024-01-27 20:44 | disposition home or self-care (01) ==
LOC: ED 20:33
PROVIDERS: Emergency Provider Emergency Medicine; Visit Provider Emergency Medicine
DX: G25.81 Restless legs syndrome (principal); Z76.0 Encounter for issue of repeat prescription; F17.210 Nicotine dependence, cigarettes, uncomplicated; Z79.899 Other long term (current) drug therapy
CPT/HCPCS: 99282

== ENCOUNTER 2024-01-28 23:04 | Emergency (ER) | payer MEDICAID, SELFPAY ==
[2024-01-28 23:05] VITALS: BP 125/90; PULSE 87; RESP 16; TEMP 36.6; O2SAT 97; BMI 22.1
--- NOTE | 2024-01-28 23:25 | EKG12_ITS ---
Test Reason : ABD PAIN Blood Pressure : / mmHG Vent. Rate : 069 BPM Atrial Rate : 069 BPM P-R Int : 118 ms QRS Dur : 068 ms QT Int : 402 ms P-R-T Axes : 067 032 040 degrees QTc Int : 430 ms Normal sinus rhythm Normal ECG Confirmed by Ramy Braun ([id number]), assistant production editor ELISHA CANADA ([id number]) on 01/30/2024 7:46:06 AM Referred By: Confirmed By:Ramy Braun
--- NOTE | 2024-01-28 23:26 | EDS_ITS ---
HPI HPI - GI History of Present Illness Chief Complaint: Nausea/Vomiting Narrative Narrative: 53-year-old female presenting with nausea, vomiting. She states she has chest pain which is burning in her epigastrium. She states she was actually here yesterday for pramipexole for her restless legs which is a chronic issue and before she was leaving she started to feel like she was nauseous but did not want to stay for an evaluation. She states she has been dealing with this since yesterday. The only thing she can remember eating yesterday was peanut butter and a couple of yogurts. Patient states that she only vomited the peanut butter and yogurt stay down. She has been able to drink fluids. Patient states last night she had lasagna which made her stomach burn worse. She also states that about 2 hours ago she had some macaroni and cheese. All of this stay down and she states she is vomiting stomach acid. No hematemesis. No diarrhea. Patient denies any cardiac history. [facility] Medical History Restless leg syndrome Alcohol abuse Drug abuse in remission Depression Bipolar 1 disorder, depressed Home Medications ?Medication ?Instructions ?Recorded ?Last Taken ?Type dextromethorphan IR 45 1 tab PO DAILY 09/09/23 Unknown History mg-bupropion ER 105 mg biphasic tablet (Auvelity) lumateperone 42 mg capsule 42 mg PO DAILY 09/09/23 Unknown History (Caplyta) pramipexole 1 mg tablet 1 mg PO QHS restless leg 09/09/23 09/09/23 History azithromycin 250 mg tablet 250 mg PO DAILY #4 TABLETS 12/13/23 Unknown Rx pramipexole 1 mg tablet 1 mg PO QHS #30 tabs 01/27/24 Unknown Rx ondansetron 4 mg disintegrating 4 mg PO Q8H PRN PRN Nausea #14 tabs 01/29/24 Unknown Rx tablet Allergy/AdvReac Type Severity Reaction Status Date / Time Penicillins Allergy PT UNSURE Verified 01/28/24 23:08 OF REACTION acetaminophen (From Tylenol) AdvReac Mild Other Verified 01/28/24 23:08 aspirin AdvReac Mild Other Verified 01/28/24 23:08 Surgical History Hx of tonsillectomy Hx of inguinal herniorrhaphy Hx of hemorrhoidectomy History of endometrial ablation Social History household members: none Smoking Status: Current every day smoker tobacco type: cigarettes ROS ROS ED Constitutional Constitutional ED: Denies chills, fever(s) or sweats Eyes Eyes: Denies blurry vision or change in vision ENT ENT ED: Denies ear pain or sore throat Cardiovascular Cardiovascular: Reports chest pain; Denies palpitations or racing heartbeat Respiratory/Chest Respiratory/Chest: Reports dyspnea; Denies cough or sputum Gastrointestinal Gastrointestinal: Reports abdominal pain, nausea and vomiting; Denies co nstipation or diarrhea Genitourinary Genitourinary ED: Denies dysuria, hematuria or urinary frequency Musculoskeletal Musculoskeletal: Denies arthralgias, myalgias or neck pain Integumentary Denies abscess, Abrasions or rash Neurologic Neurologic: Denies headache(s), paresthesias or weakness Psychiatric Psychiatric: Denies anxiety, depression, suicidal ideation or suicidal thoughts Endocrine Endocrinology: Denies polydipsia or polyuria EXAM Physical Exam Const Vital Signs: 01/28/24 23:05 01/29/24 00:58 Temperature 97.8 F Temperature Source Temporal Pulse Rate 87 62 Respiratory Rate 16 17 Blood Pressure 125/90 H 102/61 Blood Pressure Mean 101 74 Pulse Ox 97 98 Oxygen Delivery Method Room Air Room Air Positive well nourished General Appearance ED: NAD; Negative for pallor HEENT Reports moist mucous membranes normocephalic and atraumatic Eyes PERRL and EOMs intact bilaterally Resp normal respiratory effort and clear to auscultation bilaterally Auscultation: Negative for rales, rhonchi or wheezes Cardio regular rate and regular rhythm GI Inspection: other Other Details: Diffuse generalized tenderness to palpation. Neuro CN's II-XII intact bilaterally Sensorium / Orientation: alert Motor Exam: strength 5/5 throughout Psych mental status grossly normal and thought process normal Skin General Skin Exam: Negative for jaundice or pallor MDM MDM MDM Narrative Medical decision making narrative: Patient presenting with epigastric pain, nausea, vomiting. Patient presenting with right flank pain. Differential includes colitis, diverticulitis, gastritis, pancreatitis, acute cholecystitis, constipation, appendicitis, UTI, pyelonephritis, calculi, ureteral calculi, obstruction, malignancy, dehydration, electrolyte abnormalities, ovarian torsion, ovarian cyst, ectopic . Pepcid. CBC will be obtained to assess white blood cell count, hemoglobin, platelets. CMP to assess renal function, electrolytes, liver function, glucose. Lipase to assess for pancreatitis. Urinalysis to assess for UTI. Because of the chest pain I will obtain EKG and a chest x-ray as well as a high-sensitivity troponin. Patient medicated with morphine, Zofran. She is given a liter normal saline. Reevaluation patient is doing well. She is sleeping comfortably. I reviewed all of her lab work with her and it is all normal-appearing. EKG interpreted by myself shows a sinus rhythm at 69 bpm without sign ischemic change or dysrhythmia. Chest x-ray interpreted by myself shows no acute cardiopulmonary process. I do not believe she needs a delta troponin since this has been going on all day since yesterday. I do not believe this is cardiac related. I will give her prescription for Zofran for home. All questions were answered. Discharged in stable condition. Impression: 1. Nausea/vomiting 2. Abdominal pain Lab Data Attestation: I reviewed the patient's lab results. Labs: Laboratory Results - last 24 hr 01/28/24 01/29/24 23:32 00:35 WBC 8.5 RBC 4.46 Hgb 12.9 Hct 40.8 MCV 91.5 MCH 28.9 MCHC 31.6 L RDW Std Deviation 44.8 H RDW Coeff of Sohail 13.2 Plt Count 458 H MPV 8.8 Immature Gran % (Auto) 0.600 Neut % (Auto) 42.0 L Lymph % (Auto) 47.8 H [place] % (Auto) 6.0 Eos % (Auto) 3.1 Baso % (Auto) 0.5 Absolute Neuts (auto) 3.6 Absolute Lymphs (auto) 4.06 Nucleated RBC % 0 Sodium 137 Potassium 4.2 Chloride 103 Carbon Dioxide 31.0 Anion Gap 3 L BUN 14 Creatinine 0.74 Estim Creat Clear Calc 65.58 Est GFR (MDRD) Af Amer 105 Est GFR (MDRD) Non-Af 86 BUN/Creatinine Ratio 18.8 Glucose 112 H Calcium 9.3 Total Bilirubin 0.20 AST 14 L ALT 18 Alkaline Phosphatase 92 Troponin I High Sens < 3 L Total Protein 7.0 Albumin 3.1 L Globulin 3.9 Albumin/Globulin Ratio 0.8 L Lipase 53 Serum , Qual NEGATIVE Urine Color Yellow Urine Clarity Clear Urine pH 6.0 Ur Specific Andrews 1.020 Urine Protein 15 H Urine Glucose (UA) Normal Urine Ketones Negative Urine Occult Blood Negative Urine Nitrite Negative Urine Bilirubin Negative Urine Urobilinogen Normal Ur Leukocyte Esterase Negative Urine RBC 0 SEEN Urine WBC 0-5 SEEN Ur Squamous Epith Cells 0 SEEN Urine Bacteria RARE Urine Mucus 0 SEEN Ur Drug Screen Comment Ethyl Alcohol < 3.0 Radiography Diagnostic Testing: Clinical Impression(s) from Imaging Studies Chest X-Ray 01/28/24 23:45 IMPRESSION: No radiographic evidence of acute cardiopulmonary disease. Electronically Signed: Catrachita Colorado MD at 0:08 EDT , Discharge Plan Triage Chief Complaint: Nausea/Vomiting ED Provider: Francis Jessica Dx/Rx/DC Orders Instructions: ED Vomiting (Adult) Prescriptions: New ondansetron 4 mg tablet,disintegrating 4 mg PO Q8H PRN PRN (Reason: Nausea) Qty: 14 0RF No Action azithromycin 250 mg tablet 250 mg PO DAILY Qty: 4 0RF Auvelity 45-105 mg tablet, IR and ER, biphasic 1 tab PO DAILY Patient Comments: TAKE ONE TABLET BY MOUTH EVERY MORNING Caplyta 42 mg capsule 42 mg PO DAILY Patient Comments: TAKE ONE TABLET BY MOUTH EVERY MORNING pramipexole 1 mg tablet 1 mg PO QHS Patient Comments: take 1 tablet by mouth nightly pramipexole 1 mg tablet 1 mg PO QHS Qty: 30 0RF Primary Care Provider: Care Physician,No Primary Referrals: Care Physician,No Primary [Primary Care Provider] - Print Language: [place] Citizen Disposition Disposition: Home, Self Care
[2024-01-28] MEDS: 0.9% Normal Saline (1000mL) 1,000 ML 999 ML IV (23:36)
[2024-01-28] MEDS: Ondansetron 4 MG/2 ML Vial IV (23:36)
[2024-01-28] MEDS: Morphine 4 MG/ML Syringe IV (23:36)
[2024-01-28] MEDS: Famotidine 20 MG Tablet PO (23:38)
--- NOTE | 2024-01-28 23:45 | RAD_ITS ---
STUDY: X-RAY CHEST REASON FOR EXAM: Female, 53 years old patient with chest pain. TECHNIQUE: Single AP portable view of the chest. COMPARISON: Prior comparison studies are not available for review at this time. FINDINGS: The lungs are clear and hyperexpanded. There is no demonstrated pleural abnormality. Normal size heart. Normal mediastinum and jalen. Normal visualized pulmonary arteries. Normal visualized aortic arch and descending thoracic aorta. Normal visualized thoracic spine. Normal visualized ribs, clavicles, and shoulders. There is no demonstrated abnormality of the visualized soft tissue structures of the upper abdomen. RAD/Chest 1 View (Portable) IMPRESSION: No radiographic evidence of acute cardiopulmonary disease. Electronically Signed: Catrachita Colorado MD at 0:08 EDT ,
[2024-01-29 00:09] LABS: Internal QC Validated? YES +Cl - CLEAR BKGD; Pregnancy, Serum, hCG Quali. NEGATIVE Negative
[2024-01-29 00:10] LABS: Alcohol, Blood (Medical)-Serum < 3.0 mg/dL
[2024-01-29 00:18] LABS: ALB/GLOB Ratio 0.8 RATIO (0.9-2.4); AST(SGOT) 14 U/L (15-37); Alanine Aminotransfer ALT/SGPT 18 U/L (13-56); Albumin, Serum 3.1 g/dL (3.2-5.0); Alkaline Phosphatase 92 U/L (45-117); Anion Gap 3 (5-15); BUN 14 mg/dL (7-18); BUN/Creat Ratio 18.8 RATIO (10-20); Calcium,Total 9.3 mg/dL (8.5-10.1); Chloride 103 mmol/L (98-107); Creatinine, Serum 0.74 mg/dL (0.55-1.02); EST Glomerular Filtration Rate 86 mL/min (>60); Est Glom Filt Rate - Afr Amer 105 mL/min (>60); Estimated Creatinine Clearance 65.58 ml/min; Globulin 3.9 g/dL (2.2-4.2); Glucose 112 mg/dL (74-106); Lipase 53 U/L (13-75); Potassium 4.2 mmol/L (3.5-5.1); Sodium Level 137 mmol/L (136-145); Troponin-I HS < 3 pg/mL (3.0-54.0)
[2024-01-29 00:36] LABS: Absolute Lymphocyte Count 4.06 X10^3/uL (0.83-4.51); Absolute Neutrophil Count 3.6 X10^3/uL (2.0-7.7); Basophil# 0.04 X10^3/uL; Basophil% 0.5 % (0-1); Eosinophil# 0.26 X10^3/uL; Eosinophils% 3.1 % (0-5); Hematocrit 40.8 % (37-47); Hemoglobin 12.9 g/dL (12.0-15.0); Lymphocyte # 4.06 X10^3/ul (0.83-4.51); Lymphocyte % 47.8 % (19-41); Mean Corp Hgb Conc 31.6 g/dL (32-36); Mean Corpuscular Hgb 28.9 pg (27.0-32.0); Mean Corpuscular Volume 91.5 fL (81-99); Mean Platelet Vol. 8.8 fl (6.2-12.0); Monocyte# 0.51 X10^3/uL; NRBC Flagged by Analyzer 0 % (0-5); Neutrophil # 3.58 X10^3/uL (2.7-7.7); Platelet Count 458 K/mm3 (150-450); RBC Distribution Width CV 13.2 % (11.6-14.6); RBC Distribution Width SD 44.8 fl (35.1-43.9); Red Blood Count 4.46 M/mm3 (4.2-5.4); White Blood Count 8.5 K/mm3 (4.4-11.0)
[2024-01-29 00:39] LABS: Mucous, Urine 0 SEEN /hpf (<or=2+); Red Blood Cells-Urine 0 SEEN /hpf (0-5); Squamous Epithelial Cells - UA 0 SEEN /hpf (5-10)
[2024-01-29 00:58] VITALS: BP 102/61; PULSE 62; RESP 17; O2SAT 98
[2024-01-29 01:06] LABS: Color, Urine Yellow (Yellow); Glucose, Dipstick Normal (Normal); Ketone-Dipstick Negative (Negative); Leukocyte Esterase-Dipstick Negative /ul (Negative); Nitrite-Dipstick Negative (Negative); Occult Blood-Urine Negative /ul (Negative); Protein-Dipstick 15 mg/dl (Negative); Urine Bilirubin Dipstick Negative (Negative); Urine Clarity Clear (Clear); Urine Urobilinogen Normal (Normal)
[2024-01-29 01:16] LABS: Bacteria RARE /hpf (None Seen); White Blood Cells 0-5 SEEN /hpf (0-5)
--- NOTE | 2024-01-29 01:40 | ED.RN ---
The pt requested pain meds to go home. This RN told the patient that it was not ordered. The pt stated if the pain comes back I will be back.
[2024-01-29 01:50] LABS: Amphetamine Urine VISTA POSITIVE (<1000 ng/mL); Barbiturate Urine VISTA NEGATIVE (< 200 ng/mL); Benzodiazepine Urine VISTA NEGATIVE (< 200 ng/mL); Cocaine Urine VISTA NEGATIVE (< 300 ng/mL); Ecstacy Urine VISTA NEGATIVE (< 500 ng/mL); Methadone Urine VISTA NEGATIVE (< 300 ng/mL); PCP Urine VISTA NEGATIVE (< 25 ng/mL); THC Urine VISTA POSITIVE (< 50 ng/mL)
[2024-01-29 06:11] LABS: Vista UDS pH Range 5
== END 2024-01-29 01:41 | disposition home or self-care (01) ==
PROVIDERS: Emergency Provider Student in an Organized Health Care Education/Training Program; Visit Provider Student in an Organized Health Care Education/Training Program
DX: R11.2 Nausea with vomiting, unspecified (principal); F31.9 Bipolar disorder, unspecified; R07.9 Chest pain, unspecified; R06.00 Dyspnea, unspecified; R10.13 Epigastric pain; G25.81 Restless legs syndrome; F17.210 Nicotine dependence, cigarettes, uncomplicated; Z79.899 Other long term (current) drug therapy
CPT/HCPCS: 71045; 80053; 80307; 80320; 81001; 83690; 84484; 84703; 85025; 93005; 96361; 96374; 96375; 99284; J7030; A4216; G0480; J2405

== ENCOUNTER 2024-02-03 14:56 | Emergency (ER) | payer MEDICAID, SELFPAY ==
[2024-02-03 14:57] VITALS: BP 132/89; PULSE 84; RESP 16; TEMP 36.2; O2SAT 100
--- NOTE | 2024-02-03 16:36 | RAD_ITS ---
STUDY: X-RAY - LEFT ANKLE REASON FOR EXAM: Female, 53 years old. pain TECHNIQUE: 3 view(s) of the ankle. COMPARISON: None. FINDINGS: Normal visualized distal tibia and fibula. Normal medial and lateral malleoli. Normal tibiotalar articulation and ankle mortise. Normal visualized talus and calcaneus. The visualized subtalar, talonavicular, calcaneocuboid and tarsal articulations are normal. Mild bimalleolar soft tissue swelling more pronounced on the lateral aspect. RAD/Ankle min 3 Views IMPRESSION: Mild bimalleolar soft tissue swelling. No acute fracture or dislocation Electronically Signed: Adal Linares MD at 16:54 EDT ,
== END 2024-02-03 17:45 | disposition left against medical advice (07) ==
LOC: ED 17:53
DX: M25.572 Pain in left ankle and joints of left foot (principal); Z53.21 Procedure and treatment not carried out due to patient leaving prior to being seen by health care provider
CPT/HCPCS: 73610

== ENCOUNTER 2024-04-04 18:14 | Emergency (ER) | payer MEDICAID, SELFPAY ==
[2024-04-04 18:15] VITALS: BP 145/111; PULSE 81; RESP 18; TEMP 36.2; O2SAT 100; BMI 23.6
--- NOTE | 2024-04-04 18:57 | EKG12_ITS ---
Test Reason : SUICIDAL Blood Pressure : / mmHG Vent. Rate : 069 BPM Atrial Rate : 069 BPM P-R Int : 146 ms QRS Dur : 076 ms QT Int : 394 ms P-R-T Axes : 077 035 052 degrees QTc Int : 422 ms Normal sinus rhythm Normal ECG Confirmed by DARA MAHARAJ, PENNIE ([id number]), newspaper editor managing ELISHA CANADA ([id number]) on 04/05/2024 1:18:37 PM Referred By: KAMILLE Confirmed By:PENNIE DIAMOND MD
--- NOTE | 2024-04-04 18:59 | EDS_ITS ---
HPI HPI - Psych History of Present Illness Chief Complaint: Suicidal Informant: patient Narrative Narrative: Presents by PD for mental health evaluation. History of bipolar on medications. History of restless leg. Patient states was evicted due to poor landlord earlier this year. She has been living on her car for the last 4 months.'s been try to get a place, however was unable to. She also has a [employer] voucher however they denied her for place since . She states I cannot catch a break. She is given a car with significant other. She has a son that goes to college in [place] and has minimal contact with him. Today due to increasing stress, she had thoughts of suicidal ideations. She called police officer, reported that she would climb up on [employer] building and jump off. Please was sent out and brought the patient here for evaluation. [facility] Medical History Restless leg syndrome Alcohol abuse Drug abuse in remission Depression Bipolar 1 disorder, depressed Home Medications ?Medication ?Instructions ?Recorded ?Last Taken ?Type dextromethorphan IR 45 1 tab PO DAILY 09/09/23 Unknown History mg-bupropion ER 105 mg biphasic tablet (Auvelity) lumateperone 42 mg capsule 42 mg PO DAILY 09/09/23 Unknown History (Caplyta) pramipexole 1 mg tablet 2 mg PO DAILY restless leg 09/09/23 09/09/23 History Allergy/AdvReac Type Severity Reaction Status Date / Time Penicillins Allergy PT UNSURE Verified 04/04/24 18:15 OF REACTION acetaminophen (From Tylenol) AdvReac Mild Other Verified 04/04/24 18:15 aspirin AdvReac Mild Other Verified 04/04/24 18:15 Surgical History Hx of tonsillectomy Hx of inguinal herniorrhaphy Hx of hemorrhoidectomy History of endometrial ablation Social History household members: none Smoking Status: Current every day smoker tobacco type: cigarettes ROS ROS ED Constitutional Constitutional ED: Denies chills, fever(s) or sweats Eyes Eyes: Denies change in vision ENT ENT ED: Denies dysphagia or sore throat Cardiovascular Cardiovascular: Denies chest pain, leg edema, palpitations or racing heartbeat Respiratory/Chest Respiratory/Chest: Denies cough, dyspnea or dyspnea on exertion Gastrointestinal Gastrointestinal: Denies abdominal pain, diarrhea, nausea or vomiting Genitourinary Genitourinary ED: Denies dysuria, hematuria or urinary frequency Musculoskeletal Musculoskeletal: Denies back pain, extremity pain or neck pain Integumentary Denies rash or wounds Neurologic Neurologic: Denies headache(s), paresthesias or weakness Psychiatric Psychiatric: Reports depression, suicidal ideation and suicidal thoughts EXAM Physical Exam Const Vital Signs: 04/04/24 18:15 04/04/24 19:14 Temperature 97.2 F L Temperature Source Temporal Pulse Rate 81 71 Respiratory Rate 18 18 Blood Pressure 145/111 H Blood Pressure Mean 122 Pulse Ox 100 97 Oxygen Delivery Method Room Air Room Air Positive well nourished and well developed General Appearance ED: well developed and NAD HEENT Reports moist mucous membranes normocephalic and atraumatic Eyes EOMs intact bilaterally and conjunctivae normal General Eye ED: Yes normal appearance of both eyes Neck no lymphadenopathy and supple General: Negative for tenderness Chest Wall Chest: Negative for tenderness Resp normal respiratory effort and normal air movement Effort and Inspection: symmetric chest movement; Negative for respiratory distress Cardio regular rate, regular rhythm and no murmurs Peripheral Pulses: pulses 2+ throughout GI normal to inspection, nondistended, normoactive bowel sounds and non-tender Palpation: Negative for guarding or rebound tenderness present Back/Spine no CVA tenderness and no thoracic nor lumbar tenderness Extremity normal to inspection General Extremety ED: Negative for edema or tenderness General Extremity: Negative for edema Neuro oriented x3 and no sensory deficits noted Sensorium / Orientation: awake and alert Psych Psych Narrative: Posterior for exam, cooperative. Skin no rashes or lesions noted and no wounds MDM MDM MDM Narrative Medical decision making narrative: Interventions / MDM: Differential diagnosis: Suicidal ideation with a plan, history of bipolar disorder Diagnosis considered but do not suspect: N/A My EKG interpretation: Sinus rate of 69, no ST or T wave changes QTc 422. Imaging independently reviewed and interpreted by myself: N/A External documents reviewed: N/A Test considered but not ordered:N/A ED course: Increasing stressors due to being homeless living in her car. She is distressed since being infected. Admits to suicidal thoughts with a plan. Will have medical clearance labs and plan to have crisis evaluation. Labs are all stable alcohol negative. Toxicology screen with THC and MDMA. Previous similar resulted no labs. She is medically cleared. 2330: Patient evaluated by crisis, history of attempted overdose in the past. Increasing suicidal thoughts with a plan. They do feel she will benefit from p sychiatric placement. [facility] [place] slip filled out. Will wait for placement. Re-evaluation: stable Disposition discussed with patient/family/significant other: Patient Case discussed with consulting clinician: Crisis This note was generated with [employer] dictation software. It may contain incorrect words, spelling, and punctuation that were not noted in checking the note before signing. Lab Data Attestation: I reviewed the patient's lab results. Labs: Laboratory Results - last 24 hr 04/04/24 18:30 WBC 7.8 RBC 4.57 Hgb 12.9 Hct 41.2 MCV 90.2 MCH 28.2 MCHC 31.3 L RDW Std Deviation 45.4 H RDW Coeff of Sohail 13.6 Plt Count 409 MPV 9.1 Immature Gran % (Auto) 0.300 Neut % (Auto) 41.5 L Lymph % (Auto) 48.0 H [place] % (Auto) 7.8 Eos % (Auto) 1.8 Baso % (Auto) 0.6 Absolute Neuts (auto) 3.3 Absolute Lymphs (auto) 3.76 Nucleated RBC % 0 Sodium 139 Potassium 4.2 Chloride 107 Carbon Dioxide 26.0 Anion Gap 6 BUN 12 Creatinine 0.78 Estim Creat Clear Calc 62.22 Est GFR (MDRD) Af Amer 98 Est GFR (MDRD) Non-Af 81 BUN/Creatinine Ratio 15.3 Glucose 105 Calcium 8.7 Serum , Qual NEGATIVE Urine Opiates Screen NEGATIVE Urine Methadone Screen NEGATIVE Ur Barbiturates Screen NEGATIVE Ur Phencyclidine Scrn NEGATIVE Ur Amphetamines Screen NEGATIVE MDMA (Ecstasy) Screen POSITIVE H U Benzodiazepines Scrn NEGATIVE Urine Cocaine Screen NEGATIVE U Cannabinoids Screen POSITIVE H Ur Drug Screen Comment Ethyl Alcohol 4.0 Discharge Plan Triage Chief Complaint: Suicidal ED Provider: Don Rooney Dx/Rx/DC Orders Clinical Impression: Depression with suicidal ideation, History of bipolar disorder, Polysubstance dependence Prescriptions: No Action Auvelity 45-105 mg tablet, IR and ER, biphasic 1 tab PO DAILY Patient Comments: TAKE ONE TABLET BY MOUTH EVERY MORNING Caplyta 42 mg capsule 42 mg PO DAILY Patient Comments: TAKE ONE TABLET BY MOUTH EVERY MORNING pramipexole 1 mg tablet 2 mg PO DAILY Patient Comments: take 1 tablet by mouth nightly Primary Care Provider: Care Physician,No Primary Referrals: Care Physician,No Primary [Primary Care Provider] - Print Language: [place] Disposition Disposition: Psychiatric Hospital or Unit
[2024-04-04 19:14] VITALS: PULSE 71; RESP 18; O2SAT 97
[2024-04-04 19:32] LABS: Absolute Lymphocyte Count 3.76 X10^3/uL (0.83-4.51); Absolute Neutrophil Count 3.3 X10^3/uL (2.0-7.7); Basophil# 0.05 X10^3/uL; Basophil% 0.6 % (0-1); Eosinophil# 0.14 X10^3/uL; Eosinophils% 1.8 % (0-5); Hematocrit 41.2 % (37-47); Hemoglobin 12.9 g/dL (12.0-15.0); Lymphocyte # 3.76 X10^3/ul (0.83-4.51); Mean Corp Hgb Conc 31.3 g/dL (32-36); Mean Corpuscular Hgb 28.2 pg (27.0-32.0); Mean Corpuscular Volume 90.2 fL (81-99); Mean Platelet Vol. 9.1 fl (6.2-12.0); Monocyte# 0.61 X10^3/uL; Monocyte% 7.8 % (0-10); NRBC Flagged by Analyzer 0 % (0-5); Neutrophil # 3.26 X10^3/uL (2.7-7.7); Neutrophil % 41.5 % (47-70); Platelet Count 409 K/mm3 (150-450); RBC Distribution Width CV 13.6 % (11.6-14.6); RBC Distribution Width SD 45.4 fl (35.1-43.9); Red Blood Count 4.57 M/mm3 (4.2-5.4); White Blood Count 7.8 K/mm3 (4.4-11.0)
[2024-04-04 19:37] LABS: Internal QC Validated? YES +Cl - CLEAR BKGD; Pregnancy, Serum, hCG Quali. NEGATIVE Negative
[2024-04-04 19:46] LABS: Amphetamine Urine VISTA NEGATIVE (<1000 ng/mL); Anion Gap 6 (5-15); BUN 12 mg/dL (7-18); BUN/Creat Ratio 15.3 RATIO (10-20); Barbiturate Urine VISTA NEGATIVE (< 200 ng/mL); Benzodiazepine Urine VISTA NEGATIVE (< 200 ng/mL); Calcium,Total 8.7 mg/dL (8.5-10.1); Chloride 107 mmol/L (98-107); Cocaine Urine VISTA NEGATIVE (< 300 ng/mL); Creatinine, Serum 0.78 mg/dL (0.55-1.02); EST Glomerular Filtration Rate 81 mL/min (>60); Ecstacy Urine VISTA POSITIVE (< 500 ng/mL); Est Glom Filt Rate - Afr Amer 98 mL/min (>60); Estimated Creatinine Clearance 62.22 ml/min; Glucose 105 mg/dL (74-106); Methadone Urine VISTA NEGATIVE (< 300 ng/mL); PCP Urine VISTA NEGATIVE (< 25 ng/mL); Potassium 4.2 mmol/L (3.5-5.1); Sodium Level 139 mmol/L (136-145); THC Urine VISTA POSITIVE (< 50 ng/mL); Vista UDS pH Range 5
[2024-04-04] MEDS: Pramipexole Di-HCl 1 MG Tablet 2 MG PO (22:43)
--- NOTE | 2024-04-05 02:11 | ED.RN ---
[facility] stated Please do not call report until it is closer to time for her to leave. She does not have a bed until 0700
[2024-04-05 04:32] VITALS: BP 136/74; PULSE 71; RESP 18; TEMP 36.7; O2SAT 97
[2024-04-05 04:50] VITALS: BP 136/71; PULSE 71; RESP 18
== END 2024-04-05 06:52 ==
PROVIDERS: Emergency Provider Emergency Medicine; Visit Provider Emergency Medicine
DX: R45.851 Suicidal ideations (principal); F19.19 Other psychoactive substance abuse with unspecified psychoactive substance-induced disorder; F31.9 Bipolar disorder, unspecified; F17.210 Nicotine dependence, cigarettes, uncomplicated; Z79.899 Other long term (current) drug therapy; Z59.02 Unsheltered homelessness
CPT/HCPCS: 80048; 80307; 82077; 84703; 85025; 87635; 93005; 99284

== ENCOUNTER 2024-04-27 21:48 | Emergency (ER) | payer MEDICAID, SELFPAY ==
[2024-04-27 21:49] VITALS: BP 140/83; PULSE 96; RESP 16; TEMP 36.8; O2SAT 100; BMI 25.4
--- NOTE | 2024-04-27 22:10 | RAD_ITS ---
STUDY: X-RAY - ABDOMEN/PELVIS REASON FOR EXAM: Female, 53 years old. CONSTIPATION TECHNIQUE: Two AP supine views of the abdomen and pelvis. COMPARISON: None. FINDINGS: Normal visualized lung bases. There is an unremarkable bowel gas pattern. No dilated loops of bowel. There is moderate stool. There is no demonstrated free abdominal air. Normal soft tissue structures. Normal visualized osseous structures. RAD/Abdomen Single View IMPRESSION: Moderate stool. No obstruction. Electronically Signed: Roge Poon MD at 22:44 EDT ,
[2024-04-27] MEDS: Lidocaine Jelly 2% 20 ML Syringe (URO-JET) 1 APPLIC TOPICAL (22:31)
[2024-04-27] MEDS: Magnesium Citrate 300 ML PO (22:38)
[2024-04-27 22:44] VITALS: BP 109/88; PULSE 94; RESP 16; TEMP 36.8; O2SAT 100
--- NOTE | 2024-04-27 23:00 | EDS_ITS ---
HPI History of Present Illness Chief Complaint: Abd Pain Informant: patient and EMS Narrative Narrative: 53-year-old female from a [facility] half[facility]way presenting to the emergency room with constipation and rectal pain. Patient states that she has not had a bowel movement for several days. She is having some gas. She notes abdominal cramping. Patient states her hemorrhoids are inflamed. She denies any bleeding. She also notes that she was recently seen at another emergency department where she had left ankle x-rays taken but does not believe that they x-rayed the right area as she was having pain on the inside of her ankle and they did not x-ray the inside of the ankle only the front of her ankle and the lateral aspect. States her ankle continues to hurt and she does not have access to an Jin wrap or an air splint. [facility] Medical History Restless leg syndrome Alcohol abuse Drug abuse in remission Depression Bipolar 1 disorder, depressed Home Medications ?Medication ?Instructions ?Recorded ?Last Taken ?Type dextromethorphan IR 45 1 tab PO DAILY 09/09/23 Unknown History mg-bupropion ER 105 mg biphasic tablet (Auvelity) lumateperone 42 mg capsule 42 mg PO DAILY 09/09/23 Unknown History (Caplyta) pramipexole 1 mg tablet 2 mg PO DAILY restless leg 09/09/23 09/09/23 History hydrocortisone 2.5 % topical cream 1 applic [place] TID PRN hemorrhoids 04/27/24 Unknown Rx with perineal applicator #30 grams (Anusol-HC) magnesium citrate 300 ml PO X1 PRN constipation #2 04/27/24 Unknown Rx BOTTLES Allergy/AdvReac Type Severity Reaction Status Date / Time Penicillins Allergy PT UNSURE Verified 04/27/24 21:49 OF REACTION acetaminophen (From Tylenol) AdvReac Mild Other Verified 04/27/24 21:49 aspirin AdvReac Mild Other Verified 04/27/24 21:49 Family History no significant family his Surgical History Hx of tonsillectomy Hx of inguinal herniorrhaphy Hx of hemorrhoidectomy History of endometrial ablation Social History household members: none Smoking Status: Current every day smoker tobacco type: cigarettes ROS ROS ED Constitutional Constitutional ED: Denies chills, fever(s) or weight loss Eyes Eyes: Denies change in vision or diplopia ENT ENT ED: Denies ear pain, rhinorrhea or sore throat Cardiovascular Cardiovascular: Denies chest pain, orthopnea, palpitations or racing heartbeat Respiratory/Chest Respiratory/Chest: Denies cough, dyspnea or orthopnea Gastrointestinal Gastrointestinal: Reports abdominal pain, constipation and other Details: Rectal pain ; Denies diarrhea, nausea or vomiting Genitourinary Genitourinary ED: Denies dysuria, hematuria or urinary frequency Musculoskeletal Musculoskeletal: Reports other Details: Left ankle pain ; Denies arthralgias or myalgias Integumentary Denies abscess or rash Neurologic Neurologic: Denies headache(s) or weakness Psychiatric Psychiatric: Denies anxiety, depression, suicidal ideation or suicidal thoughts Endocrine Endocrinology: Denies polydipsia, polyphagia or polyuria Allergic/Immunologic Allergic/Immunologic ED: Denies mouth swelling, tongue swelling or urticaria EXAM Physical Exam Const Vital Signs: 04/27/24 21:49 04/27/24 22:44 Temperature 98.3 F 98.3 F Temperature Source Oral Pulse Rate 96 94 Respiratory Rate 16 16 Blood Pressure 140/83 H 109/88 H Blood Pressure Mean 102 95 Pulse Ox 100 100 Oxygen Delivery Method Room Air Positive well nourished and well developed General Appearance ED: well developed HEENT Reports normocephalic, head/scalp atraumatic and moist mucous membranes Eyes PERRL and EOMs intact bilaterally Neck no lymphadenopathy, supple and no JVD Resp normal respiratory effort and clear to auscultation bilaterally Cardio regular rate, regular rhythm and no murmurs GI normal to inspection, nondistended, normoactive bowel sounds and non-tender GI Narrative: There is palpable stool in the right hemicolon compared to the left. There are active bowel sounds. There is no guarding or rebound the abdomen soft nonsurgical in nature Palpation: soft Back/Spine no CVA tenderness and normal ROM Extremity normal to inspection General Extremety ED: Negative for edema General Extremity: Negative for edema Neuro oriented x3 and CN's II-XII intact bilaterally Sensorium / Orientation: alert Motor Exam: strength 5/5 throughout Psych mental status grossly normal Mood & Affect: Negative for depressed or tearful Skin no rashes or lesions noted and no wounds MDM MDM MDM Narrative Medical decision making narrative: Differential diagnosis includes but not limited to volvulus small bowel obstruction constipation diverticulitis colitis appendicitis inflamed hemorrhoids My independent interpretation of the plain films of the abdomen is increased stool right hemicolon no evidence of bowel obstruction or volvulus. Clinically the abdomen is benign and nonsurgical in nature therefore I doubt that this would be appendicitis or colitis/diverticulitis at this point. Lidocaine jelly was placed on the anus for hemorrhoidal pain. I recommend magnesium citrate. I can write for some Anusol HC for home use. History & Record Review Discussion w/independent historian: Patient Radiography Diagnostic Testing: Clinical Impression(s) from Imaging Studies KUB X-Ray 04/27/24 22:10 IMPRESSION: Moderate stool. No obstruction. Electronically Signed: Roge Poon MD at 22:44 EDT Reading Location ID and State: [address] [place] [address] , Service support , Discharge Plan Triage Chief Complaint: Abd Pain ED Provider: Seng Betancourt Dx/Rx/DC Orders Clinical Impression: Abdominal pain, Constipation, Ankle sprain Instructions: ED Constipation (Adult), ED Hemorrhoids, ED Ankle Sprain (Adult) Prescriptions: New hydrocortisone [Anusol-HC] 2.5 % cream with perineal applicator 1 applic [place] TID PRN (Reason: hemorrhoids) Qty: 30 0RF magnesium citrate Solution 300 ml PO X1 PRN (Reason: constipation) Qty: 2 0RF No Action Auvelity 45-105 mg tablet, IR and ER, biphasic 1 tab PO DAILY Patient Comments: TAKE ONE TABLET BY MOUTH EVERY MORNING Caplyta 42 mg capsule 42 mg PO DAILY Patient Comments: TAKE ONE TABLET BY MOUTH EVERY MORNING pramipexole 1 mg tablet 2 mg PO DAILY Patient Comments: take 1 tablet by mouth nightly Primary Care Provider: Care Physician,No Primary Referrals: Care Physician,No Primary [Primary Care Provider] - Print Language: Marshallese Disposition Disposition: Home, Self Care Discharge Date/Time: 04/27/24 22:48
== END 2024-04-27 22:48 | disposition home or self-care (01) ==
PROVIDERS: Emergency Provider Emergency Medicine; Visit Provider Emergency Medicine
DX: K59.00 Constipation, unspecified (principal); S93.402A Sprain of unspecified ligament of left ankle, initial encounter; X58.XXXA Exposure to other specified factors, initial encounter; K64.9 Unspecified hemorrhoids; F17.210 Nicotine dependence, cigarettes, uncomplicated; Z79.899 Other long term (current) drug therapy
CPT/HCPCS: 74018; 99283

== ENCOUNTER → 2024-05-04 | Outpatient (CLI) | payer MEDICAID, SELFPAY ==
--- NOTE | 2024-05-04 12:15 | RAD_ITS ---
STUDY: X-RAY - LUMBAR SPINE REASON FOR EXAM: Female, 53 years old. LOW BACK PAIN TECHNIQUE: 2 view(s) of the lumbar spine were obtained. COMPARISON: None FINDINGS: Normal lumbar lordosis. There is no substantial scoliosis. There is a normal alignment of the vertebrae. Minimal compression fracture of L1 of indeterminate age. Likewise minimal indentations of the superior endplates of L2 and L3 also of indeterminate age. Otherwise unremarkable Vertebral bodies and endplates. Normal disc space heights. The soft tissue structures are unremarkable. RAD/Lumbar Spine 2 or 3 Views IMPRESSION: Minimal compression fracture of L1 and minimal indentations of the superior endplates of L2 and L3 all of indeterminate age. Electronically Signed: Alex Miles MD at 15:25 EDT ,
--- NOTE | 2024-05-04 12:15 | RAD_ITS ---
INDICATION: PAIN chronic pain. EXAMINATION/TECHNIQUE: X-RAY - LEFT XR Knee 3 Views 3 VIEWS COMPARISON: No relevant prior comparison study available FINDINGS: BONES: No fracture demonstrated. Mild narrowing at the patellofemoral joint compartment. JOINTS: No dislocation. SOFT TISSUES: Unremarkable. RAD/Knee 3 Views IMPRESSION: No evidence of fracture. Mild degenerative changes. Electronically Signed: Waleska Mahan MD at 8:13 EDT ,
[2024-05-04 13:02] LABS: Hematocrit 39.4 % (37-47); Hemoglobin 12.5 g/dL (12.0-15.0); Mean Corp Hgb Conc 31.7 g/dL (32-36); Mean Corpuscular Hgb 28.3 pg (27.0-32.0); Mean Corpuscular Volume 89.3 fL (81-99); Mean Platelet Vol. 8.8 fl (6.2-12.0); Platelet Count 478 K/mm3 (150-450); RBC Distribution Width CV 13.6 % (11.6-14.6); RBC Distribution Width SD 44.3 fl (35.1-43.9); Red Blood Count 4.41 M/mm3 (4.2-5.4); White Blood Count 6.3 K/mm3 (4.4-11.0)
[2024-05-04 13:04] LABS: Hemoglobin A1c 5.9 % (3.8-5.6)
[2024-05-04 13:05] LABS: Vitamin B12 376 pg/mL (211-911); Vitamin D,25 Hydroxy 26.2 ng/mL
[2024-05-04 14:13] LABS: ALB/GLOB Ratio 0.9 RATIO (0.9-2.4); AST(SGOT) 62 U/L (15-37); Alanine Aminotransfer ALT/SGPT 32 U/L (13-56); Albumin, Serum 3.4 g/dL (3.2-5.0); Alkaline Phosphatase 100 U/L (45-117); Anion Gap 6 (5-15); BUN 13 mg/dL (7-18); BUN/Creat Ratio 18.3 RATIO (10-20); Chloride 105 mmol/L (98-107); Cholesterol 258 mg/dL (200); Creatinine, Serum 0.71 mg/dL (0.55-1.02); EST Glomerular Filtration Rate 91 mL/min (>60); Est Glom Filt Rate - Afr Amer 110 mL/min (>60); Estradiol 11.3 pg/mL; Follicle Stimulating Hormone 71.9 mIU/mL; Globulin 3.9 g/dL (2.2-4.2); Glucose 90 mg/dL (74-106); High Density Lipoprotein 63 mg/dL; Iron 88 ug/dL (50-170); Iron Binding Capacity,Total 354 ug/dL (250-450); Luteinizing Hormone 47.1 mIU/mL; PERCENT IRON SATURATION 24.9 % (15.0-55.0); Potassium 3.7 mmol/L (3.5-5.1); Protein, Total 7.3 g/dL (6.4-8.2); Sodium Level 137 mmol/L (136-145); Thyroid Stim Hormone (TSH) 0.761 uIU/mL (0.358-3.740); Triglycerides 109 mg/dL; Very Low Density Lipoprotein 22 mg/dL (5-40)
== END | disposition home or self-care (01) ==
PROVIDERS: PCP Nurse Practitioner Family; Referring Provider Nurse Practitioner Family; Visit Provider Nurse Practitioner Family
DX: N95.1 Menopausal and female climacteric states (principal); F31.81 Bipolar II disorder; E56.9 Vitamin deficiency, unspecified; M54.50 Low back pain, unspecified; G25.81 Restless legs syndrome
CPT/HCPCS: 36415; 72100; 73562; 80053; 80061; 82306; 82607; 82670; 83001; 83002; 83036; 83540; 83550; 84443; 85027

== ENCOUNTER 2024-05-13 18:45 | Emergency (ER) | payer MEDICAID, SELFPAY ==
[2024-05-13 18:46] VITALS: BP 168/117; PULSE 95; RESP 18; TEMP 36.1; O2SAT 99; BMI 23.3
[2024-05-13 19:39] VITALS: BP 164/78; PULSE 90; RESP 18; TEMP 36.1; O2SAT 99
--- NOTE | 2024-05-13 19:50 | EDS_ITS ---
HPI History of Present Illness Chief Complaint: Anxiety Detail of Chief Complaint: Anxiousness for approximately 1 week Informant: patient Onset/Context/Timing Onset: Weeks Context: Sudden Onset (Worse 3 hours prior to presentation) Timing: Intermittent and Waxes and wanes Quality: Anxiousness, nervousness sense of uneasiness Location: Generalized Current Severity: Moderate Maximum Severity: Severe Worsened by: Nothing that patient is able to specify Relieved by: Nothing Associated Symptoms Associated Symptoms: Trouble sleeping Narrative Narrative: Patient is a 53-year-old woman. She has history of bipolar affective disorder. Recently her Abilify dose was increased. This was increased approxi-1 to 2 weeks ago. Since that time she has had increased anxiety. There is a 17% incidence of anxiety and anxiousness with Abilify. She denies headache, visual, ocular auditory symptoms. She denies cardiac respiratory symptoms. She denies GI symptoms. Denies nausea or vomiting. She denies urologic symptoms. She denies any neurologic symptoms. She denies rigidity of any of her muscles. She denies palpitations. Prior similar symptoms: Yes Recent Illness/Hospitalization: No [facility] Medical History Restless leg syndrome Alcohol abuse Drug abuse in remission Depression Bipolar 1 disorder, depressed Home Medications ?Medication ?Instructions ?Recorded ?Last Taken ?Type dextromethorphan IR 45 1 tab PO DAILY 09/09/23 Unknown History mg-bupropion ER 105 mg biphasic tablet (Auvelity) lumateperone 42 mg capsule 42 mg PO DAILY 09/09/23 Unknown History (Caplyta) pramipexole 1 mg tablet 2 mg PO DAILY restless leg 09/09/23 09/09/23 History hydrocortisone 2.5 % topical cream 1 applic [place] TID PRN hemorrhoids 04/27/24 Unknown Rx with perineal applicator #30 grams (Anusol-HC) magnesium citrate 300 ml PO X1 PRN constipation #2 04/27/24 Unknown Rx BOTTLES lorazepam 0.5 mg tablet (Ativan) 0.5 mg PO BID PRN anxiety 5 days 05/13/24 Unknown Rx #10 tabs Allergy/AdvReac Type Severity Reaction Status Date / Time Penicillins Allergy PT UNSURE Verified 05/13/24 18:46 OF REACTION aspirin AdvReac Mild Other Verified 05/13/24 18:46 Surgical History Hx of tonsillectomy Hx of inguinal herniorrhaphy Hx of hemorrhoidectomy History of endometrial ablation Social History household members: none Smoking Status: Current every day smoker tobacco type: cigarettes ROS ROS ED Constitutional Constitutional ED: Denies chills, fever(s) or subjective Eyes Eyes: Denies blurry vision or change in vision ENT ENT ED: Denies rhinorrhea or sore throat Cardiovascular Cardiovascular: Denies chest pain or palpitations Respiratory/Chest Respiratory/Chest: Denies cough, dyspnea or dyspnea on exertion Gastrointestinal Gastrointestinal: Denies abdominal pain, nausea or vomiting Genitourinary Genitourinary ED: Denies dysuria, hematuria or urinary frequency Musculoskeletal Musculoskeletal: Denies arthralgias or myalgias Integumentary Denies rash Neurologic Neurologic: Denies headache(s), paresthesias or weakness Psychiatric Psychiatric: Reports anxiety and depression; Denies suicidal ideation or suicidal thoughts Hematologic/Lymphatic Hematologic/Lymphatic: Reports systems reviewed and no addt'l complaints, except as documented EXAM Physical Exam Const Vital Signs: 05/13/24 18:46 05/13/24 19:39 Temperature 97.0 F L 97.0 F L Temperature Source Temporal Pulse Rate 95 90 Respiratory Rate 18 18 Blood Pressure 168/117 H 164/78 H Blood Pressure Mean 134 106 Pulse Ox 99 99 Oxygen Delivery Method Room Air Positive well nourished and well developed General Appearance ED: well developed and NAD; Negative for pallor HEENT Reports moist mucous membranes HEENT Narrative: Ears normal. Nares patent. Posterior pharynx is normal. Eyes PERRL and EOMs intact bilaterally General Eye ED: Negative for pale conjunctiva or scleral icterus Resp normal respiratory effort and clear to auscultation bilaterally Cardio regular rate, regular rhythm, S1 normal heart sound, S2 normal heart sound and no murmurs Extremity normal to inspection Neuro oriented x3 and CN's II-XII intact bilaterally Sensorium / Orientation: alert Psych Mood & Affect: anxious Skin no rashes or lesions noted and no wounds General Skin Exam: elasticity normal; Negative for jaundice or pallor MDM MDM MDM Narrative Medical decision making narrative: This may be an adverse reaction due to the Abilify. Will have her contact provider that prescribed Abilify. Also recommended decreasing the Abilify dose to what it was. Will prescribe Ativan. She is given a dose of Ativan in the emergency department. History & Record Review Additional record(s) reviewed:: Prior ED visit (Prior ER visits for depression, nausea vomiting, restless leg syndrome, otitis media and abdominal pain.) and Prior labs Discharge Plan Triage Chief Complaint: Anxiety ED Provider: Greg Campos Dx/Rx/DC Orders Clinical Impression: Anxiety, Adverse drug reaction Instructions: ED Anxiety Reaction Prescriptions: New lorazepam [Ativan] 0.5 mg tablet 0.5 mg PO BID PRN (Reason: anxiety) 5 Days Qty: 10 0RF No Action Auvelity 45-105 mg tablet, IR and ER, biphasic 1 tab PO DAILY Patient Comments: TAKE ONE TABLET BY MOUTH EVERY MORNING Caplyta 42 mg capsule 42 mg PO DAILY Patient Comments: TAKE ONE TABLET BY MOUTH EVERY MORNING pramipexole 1 mg tablet 2 mg PO DAILY Patient Comments: take 1 tablet by mouth nightly hydrocortisone [Anusol-HC] 2.5 % cream with perineal applicator 1 applic [place] TID PRN (Reason: hemorrhoids) Qty: 30 0RF magnesium citrate Solution 300 ml PO X1 PRN (Reason: constipation) Qty: 2 0RF Primary Care Provider: Kaylee Raines Referrals: Kaylee Raines, AGRICULTURAL RESEARCH ENGINEER-C [Primary Care Provider] - 3-5 Days Activity Restrictions/Additional Instructions: Recommend decreasing your Abilify dose to what you were taking prior to it being increased. Print Language: Amharic Disposition Disposition: Home, Self Care
[2024-05-13] MEDS: LORazepam 0.5 MG Tablet PO (20:02)
== END 2024-05-13 20:04 | disposition home or self-care (01) ==
PROVIDERS: Emergency Provider Emergency Medicine; PCP Nurse Practitioner Family; Visit Provider Emergency Medicine
DX: F41.9 Anxiety disorder, unspecified (principal); F31.9 Bipolar disorder, unspecified; T43.595A Adverse effect of other antipsychotics and neuroleptics, initial encounter; F17.210 Nicotine dependence, cigarettes, uncomplicated; Z79.899 Other long term (current) drug therapy
CPT/HCPCS: 99282

== ENCOUNTER → 2024-06-20 | Outpatient (CLI) | payer MEDICAID, SELFPAY ==
[2024-06-28 09:09] LABS: HPV APTIMA, High Risk Negative (Negative)
[2024-07-01 14:57] LABS: HPV Reflexed? YES, CHARGE PATIENT
== END | disposition home or self-care (01) ==
LOC: LABSPEC 06-21 08:33
PROVIDERS: PCP Nurse Practitioner Family; Visit Provider Nurse Practitioner Family
DX: Z12.4 Encounter for screening for malignant neoplasm of cervix (principal)
CPT/HCPCS: 87624; 88175; G0145

== ENCOUNTER → 2024-08-24 | Outpatient (CLI) | payer MEDICAID, SELFPAY ==
[2024-08-24 12:58] LABS: Absolute Lymphocyte Count 3.42 X10^3/uL (0.83-4.51); Absolute Neutrophil Count 2.8 X10^3/uL (2.0-7.7); Basophil# 0.03 X10^3/uL; Basophil% 0.4 % (0-1); Eosinophil# 0.17 X10^3/uL; Eosinophils% 2.5 % (0-5); Hematocrit 38.6 % (37-47); Hemoglobin 12.3 g/dL (12.0-15.0); Lymphocyte # 3.42 X10^3/ul (0.83-4.51); Lymphocyte % 50.1 % (19-41); Mean Corp Hgb Conc 31.9 g/dL (32-36); Mean Corpuscular Hgb 28.1 pg (27.0-32.0); Mean Corpuscular Volume 88.1 fL (81-99); Mean Platelet Vol. 8.7 fl (6.2-12.0); Monocyte# 0.38 X10^3/uL; Monocyte% 5.6 % (0-10); NRBC Flagged by Analyzer 0 % (0-5); Neutrophil # 2.81 X10^3/uL (2.7-7.7); Neutrophil % 41.3 % (47-70); Platelet Count 426 K/mm3 (150-450); RBC Distribution Width CV 13.2 % (11.6-14.6); RBC Distribution Width SD 43.1 fl (35.1-43.9); Red Blood Count 4.38 M/mm3 (4.2-5.4); White Blood Count 6.8 K/mm3 (4.4-11.0)
[2024-08-24 13:12] LABS: Vitamin D,25 Hydroxy 36.8 ng/mL
[2024-08-24 13:39] LABS: ALB/GLOB Ratio 0.9 RATIO (0.9-2.4); AST(SGOT) 14 U/L (15-37); Alanine Aminotransfer ALT/SGPT 23 U/L (13-56); Albumin, Serum 3.2 g/dL (3.2-5.0); Alkaline Phosphatase 77 U/L (45-117); Anion Gap 7 (5-15); BUN 13 mg/dL (7-18); BUN/Creat Ratio 19.4 RATIO (10-20); Chloride 105 mmol/L (98-107); Creatinine, Serum 0.67 mg/dL (0.55-1.02); EST Glomerular Filtration Rate 97 mL/min (>60); Est Glom Filt Rate - Afr Amer 118 mL/min (>60); Globulin 3.6 g/dL (2.2-4.2); Glucose 113 mg/dL (74-106); Potassium 3.9 mmol/L (3.5-5.1); Protein, Total 6.8 g/dL (6.4-8.2); Sodium Level 138 mmol/L (136-145)
[2024-08-24 18:50] LABS: Hemoglobin A1c 5.7 % (3.8-5.6)
== END | disposition home or self-care (01) ==
LOC: VSLAB 10:49
PROVIDERS: PCP Nurse Practitioner Family; Visit Provider Nurse Practitioner Family
DX: R73.03 Prediabetes (principal); E55.9 Vitamin D deficiency, unspecified
CPT/HCPCS: 36415; 80053; 82306; 83036; 85025

== ENCOUNTER 2024-09-04 00:25 | Emergency (ER) | payer MEDICAID, SELFPAY ==
[2024-09-04 00:26] VITALS: BP 136/85; PULSE 83; RESP 14; TEMP 36.6; O2SAT 94; BMI 24.3
--- NOTE | 2024-09-04 00:54 | EX.ED.VIS.EY ---
HPI History of Present Illness Chief Complaint: Eye Problem Narrative Narrative: Presents with worsening left eye pain. Monovision with contact lens wearing left eye. Daily disposables however For 5 Days. Foreign body sensation. [facility] Medical History Restless leg syndrome Alcohol abuse Drug abuse in remission Depression Bipolar 1 disorder, depressed Medical History no medical history Home Medications ?Medication ?Instructions ?Recorded ?Last Taken ?Type dextromethorphan IR 45 1 tab PO DAILY 09/09/23 Unknown History mg-bupropion ER 105 mg biphasic tablet (Auvelity) lumateperone 42 mg capsule 42 mg PO DAILY 09/09/23 Unknown History (Caplyta) pramipexole 1 mg tablet 2 mg PO DAILY restless leg 09/09/23 09/09/23 History hydrocortisone 2.5 % topical cream 1 applic [place] TID PRN hemorrhoids 04/27/24 Unknown Rx with perineal applicator #30 grams (Anusol-HC) magnesium citrate 300 ml PO X1 PRN constipation #2 04/27/24 Unknown Rx BOTTLES lorazepam 0.5 mg tablet (Ativan) 0.5 mg PO BID PRN anxiety 5 days 05/13/24 Unknown Rx #10 tabs Allergy/AdvReac Type Severity Reaction Status Date / Time Penicillins Allergy PT UNSURE Verified 09/04/24 00:30 OF REACTION Family History no significant family his Surgical History Hx of tonsillectomy Hx of inguinal herniorrhaphy Hx of hemorrhoidectomy History of endometrial ablation Surgical History no surgical history Social History household members: none Smoking Status: Light Smoker (<10/day) ROS ROS ED Constitutional Constitutional ED: Denies chills, fever(s) or sweats Eyes Eyes: Reports other Details: Left eye pain Cardiovascular Cardiovascular: Denies chest pain Respiratory/Chest Respiratory/Chest: Denies cough Gastrointestinal Gastrointestinal: Denies abdominal pain, diarrhea, nausea or vomiting Musculoskeletal Musculoskeletal: Denies other Neurologic Neurologic: Denies headache(s), paresthesias or weakness EXAM Physical Exam Const Vital Signs: 09/04/24 00:26 Temperature 97.9 F Temperature Source Oral Pulse Rate 83 Respiratory Rate 14 Blood Pressure 136/85 H Blood Pressure Mean 102 Pulse Ox 94 Oxygen Delivery Method Room Air Positive well nourished and well developed General Appearance ED: well developed and NAD HEENT Reports moist mucous membranes normocephalic and atraumatic Eyes Eyes Narrative: Left eye injected conjunctiva throughout. Eyelid everted during initial exam could not visualize any foreign body patient stating she is too uncomfortable. This was stopped and we will plan for tetracaine instilled meant slit-lamp examination. After tetracaine instilled: Slit-lamp examination did note contact lens with printing on her eye. This was removed with gloved finger. Evaluation with slit lamp, no ulcerations seen. Injected sclera. Fluorescein instilled there was no uptake of ulceration or abrasions. Visual acuity 20/50 OD, 20/70 OS Neck full ROM Chest Wall Chest: Negative for tenderness Resp normal respiratory effort and normal air movement Effort and Inspection: symmetric chest movement; Negative for respiratory distress Cardio regular rate, regular rhythm and no murmurs Peripheral Pulses: pulses 2+ throughout GI normal to inspection, nondistended, normoactive bowel sounds and non-tender Palpation: Negative for guarding or rebound tenderness present Extremity normal to inspection General Extremety ED: Negative for edema or tenderness General Extremity: Negative for edema Neuro oriented x3 and no sensory deficits noted Sensorium / Orientation: awake and alert Skin no rashes or lesions noted and no wounds MDM MDM MDM Narrative Medical decision making narrative: Interventions / MDM: Differential diagnosis: Left conjunctivitis, foreign body left eye Diagnosis considered but do not suspect: N/A My EKG interpretation: N/A Imaging independently reviewed and interpreted by myself: N/A External documents reviewed: N/A Test considered but not ordered:N/A ED course: Foreign body sensation left eye with injected sclera, she is too uncomfortable with initial exam therefore was set up for tetracaine instilled with slit-lamp examination. 0140: After tetracaine was instilled was able to perform slit-lamp examination. Contact lens was removed. No abrasions or ulcerations were noted. Contact lens wearing conjunctivitis. She started on Cipro drops for the eye. Visual acuity 20/50 OD, 20/70 OS Re-evaluation: stable Disposition discussed with patient/family/significant other: Patient and significant other Case discussed with consulting clinician: N/A This note was generated with Dragon dictation software. It may contain incorrect words, spelling, and punctuation that were not noted in checking the note before signing. Discharge Plan Triage Chief Complaint: Eye Problem ED Provider: Don Rooney Dx/Rx/DC Orders Clinical Impression: Conjunctivitis, Foreign body in eye Instructions: ED Conjunctivitis, Nonspecific, ED Corneal Foreign Body, Removed Prescriptions: No Action Auvelity 45-105 mg tablet, IR and ER, biphasic 1 tab PO DAILY Patient Comments: TAKE ONE TABLET BY MOUTH EVERY MORNING Caplyta 42 mg capsule 42 mg PO DAILY Patient Comments: TAKE ONE TABLET BY MOUTH EVERY MORNING pramipexole 1 mg tablet 2 mg PO DAILY Patient Comments: take 1 tablet by mouth nightly lorazepam [Ativan] 0.5 mg tablet 0.5 mg PO BID PRN (Reason: anxiety) 5 Days Qty: 10 0RF hydrocortisone [Anusol-HC] 2.5 % cream with perineal applicator 1 applic [place] TID PRN (Reason: hemorrhoids) Qty: 30 0RF magnesium citrate Solution 300 ml PO X1 PRN (Reason: constipation) Qty: 2 0RF Primary Care Provider: Kaylee Raines Referrals: Antonio Allred MD [Med Staff - Active Staff] - 3-5 Days Kaylee Raines, AUTOMOBILE RENTAL REPRESENTATIVE-C [Primary Care Provider] - Activity Restrictions/Additional Instructions: Contact lens was removed to left eye. Use eyedrops twice a day for next 7 days. [facility] with [facility]. Print Language: Turkmen Disposition Disposition: Home, Self Care Discharge Date/Time: 09/04/24 02:21
[2024-09-04] MEDS: Tetracaine 0.5% Ophthalmic Bottle 1 DRP OPHTHALMIC (01:16)
[2024-09-04] MEDS: Fluorescein 1 MG STRIP 1 STRIP OPHTHALMIC (01:16)
[2024-09-04 01:50] VITALS: BP 114/83; PULSE 74; RESP 18; TEMP 36.7; O2SAT 98
[2024-09-04] MEDS: Ciprofloxacin 0.3% 2.5ml Bottle 2 DRP LEFT EYE (01:54)
== END 2024-09-04 02:21 | disposition home or self-care (01) ==
PROVIDERS: Emergency Provider Emergency Medicine; PCP Nurse Practitioner Family; Visit Provider Emergency Medicine
DX: H10.9 Unspecified conjunctivitis (principal); T15.92XA Foreign body on external eye, part unspecified, left eye, initial encounter; W44.8XXA Other foreign body entering into or through a natural orifice, initial encounter; F17.200 Nicotine dependence, unspecified, uncomplicated; Z79.84 Long term (current) use of oral hypoglycemic drugs; Z79.899 Other long term (current) drug therapy
CPT/HCPCS: 99283

== ENCOUNTER 2024-09-19 06:40 | Emergency (ER) | payer MEDICAID, SELFPAY ==
[2024-09-19 06:42] VITALS: BP 95/72; PULSE 73; RESP 18; TEMP 36.6; O2SAT 100; BMI 24.3
--- NOTE | 2024-09-19 07:13 | EX.ED.DYSGE1 ---
HPI History of Present Illness Chief Complaint: Med Refill Narrative Narrative: Patient is a 54-year-old female with past medical history of alcohol abuse, bipolar 1 disorder, depression, restless leg syndrome who presents to the emergency department requesting a prescription for Mirapex. Patient states that her primary care physician recently changed her from Mirapex to gabapentin and states that she wants changed back to Mirapex. She states that she did not call her family doctor about this. Patient states that she is on this for her restless leg and states that there was no reason for the change [facility] Medical History Restless leg syndrome Alcohol abuse Drug abuse in remission Depression Bipolar 1 disorder, depressed Medical History no medical history Home Medications ?Medication ?Instructions ?Recorded ?Last Taken ?Type dextromethorphan IR 45 1 tab PO DAILY 09/09/23 Unknown History mg-bupropion ER 105 mg biphasic tablet (Auvelity) lumateperone 42 mg capsule 42 mg PO DAILY 09/09/23 Unknown History (Caplyta) pramipexole 1 mg tablet 2 mg PO DAILY restless leg 09/09/23 09/09/23 History hydrocortisone 2.5 % topical cream [address] TID PRN hemorrhoids 04/27/24 Unknown Rx with perineal applicator #30 grams (Anusol-HC) magnesium citrate 300 ml PO X1 PRN constipation #2 04/27/24 Unknown Rx BOTTLES aripiprazole 10 mg tablet 10 mg PO QHS 09/19/24 Unknown History atorvastatin 10 mg tablet 10 mg PO QHS 09/19/24 Unknown History benztropine 0.5 mg tablet 0.5 mg PO BID 09/19/24 Unknown History buspirone 10 mg tablet 10 mg PO BID 09/19/24 Unknown History cholecalciferol (vitamin D3) 125 125 mcg PO DAILY 09/19/24 Unknown History mcg (5,000 unit) capsule gabapentin 300 mg capsule 300 mg PO QHS 09/19/24 Unknown History hydroxyzine HCl 50 mg tablet 50 mg PO QHS PRN PRN sleep 09/19/24 Unknown History melatonin 3 mg tablet 3 - 6 mg PO QHS PRN PRN insomnia 09/19/24 Unknown History metformin 500 mg tablet,extended 500 mg PO DAILY 09/19/24 Unknown History release 24 hr multivitamin with folic acid 400 1 tab PO DAILY 09/19/24 Unknown History mcg tablet (High Potency Multivitamin) olanzapine 5 mg-samidorphan 10 mg 1 tab PO QHS 09/19/24 Unknown History tablet (Lybalvi) omeprazole 20 mg capsule,delayed 20 mg PO DAILY 09/19/24 Unknown History release polyethylene glycol 3350 17 g PO DAILY 09/19/24 Unknown History gram/dose oral powder (Gavilax) Allergy/AdvReac Type Severity Reaction Status Date / Time Penicillins Allergy PT UNSURE Verified 09/19/24 06:41 OF REACTION Family History no significant family his Surgical History Hx of tonsillectomy Hx of inguinal herniorrhaphy Hx of hemorrhoidectomy History of endometrial ablation Surgical History no surgical history Social History household members: none Smoking Status: Current every day smoker tobacco type: cigarettes ROS ROS ED ROS Narrative Review of systems was unobtainable from the patient as she ultimately eloped prior to me fully examine the patient as she stated there is no point in her being here since she was not getting her medication refill EXAM Physical Exam Narrative Exam Narrative: General: Patient is lying in bed rest comfortably did not appear to be in acute distress Head: Atraumatic, normocephalic Eyes: PERRL bilaterally, EOMI bilateral, no conjunctival injection noted Neck: Soft, supple, trach midline Cardiovascular: Regular rate Extremities: +5/5 strength noted in the bilateral upper and lower extremities Neurological: Patient following commands knew that she was at [facility] year is 2024 Skin: Warm, dry, intact no rashes or lesions noted Const Vital Signs: 09/19/24 06:42 09/19/24 06:43 Temperature 97.8 F Temperature Source Oral Pulse Rate 73 Respiratory Rate 18 Respiratory Effort Normal Respiratory Pattern Normal Blood Pressure 95/72 Blood Pressure Mean 79 Pulse Ox 100 Oxygen Delivery Method Room Air MDM MDM MDM Narrative Medical decision making narrative: Patient is a 54-year-old female who presented to the emergency department for medication refill for her Mirapex for her restless leg syndrome. Once again once the patient found out that I was not refilling her Mirapex she stated there is no point me being here I am leaving. Patient ultimately eloped prior to me being able to fully discuss this with the patient and evaluate her fully. Discharge Plan Triage Chief Complaint: Med Refill ED Provider: Adryan French Dx/Rx/DC Orders Clinical Impression: Medication refill Prescriptions: No Action Auvelity 45-105 mg tablet, IR and ER, biphasic 1 tab PO DAILY Patient Comments: TAKE ONE TABLET BY MOUTH EVERY MORNING Caplyta 42 mg capsule 42 mg PO DAILY Patient Comments: TAKE ONE TABLET BY MOUTH EVERY MORNING pramipexole 1 mg tablet 2 mg PO DAILY Patient Comments: take 1 tablet by mouth nightly hydrocortisone [Anusol-HC] 2.5 % cream with perineal applicator [address] TID PRN (Reason: hemorrhoids) Qty: 30 0RF magnesium citrate Solution 300 ml PO X1 PRN (Reason: constipation) Qty: 2 0RF benztropine 0.5 mg tablet 0.5 mg PO BID atorvastatin 10 mg tablet 10 mg PO QHS hydroxyzine HCl 50 mg tablet 50 mg PO QHS PRN PRN (Reason: sleep) buspirone 10 mg tablet 10 mg PO BID gabapentin 300 mg capsule 300 mg PO QHS cholecalciferol (vitamin D3) 125 mcg (5,000 unit) capsule 125 mcg PO DAILY aripiprazole 10 mg tablet 10 mg PO QHS melatonin 3 mg tablet 3 - 6 mg PO QHS PRN PRN (Reason: insomnia) omeprazole 20 mg capsule,delayed release(DR/EC) 20 mg PO DAILY polyethylene glycol 3350 [Gavilax] 17 gram/dose powder PO DAILY metformin 500 mg tablet extended release 24 hr 500 mg PO DAILY multivitamin with folic acid [High Potency Multivitamin] 400 mcg tablet 1 tab PO DAILY Lybalvi 5-10 mg tablet 1 tab PO QHS Primary Care Provider: Kaylee Raines Referrals: Kaylee Raines, SERVER MANAGER-C [Primary Care Provider] - Print Language: Grenadian Disposition Disposition: Elopement Discharge Date/Time: 09/19/24 07:07
== END 2024-09-19 07:07 | disposition left against medical advice (07) ==
LOC: ED 07:00
PROVIDERS: Emergency Provider Emergency Medicine; PCP Nurse Practitioner Family; Visit Provider Emergency Medicine
DX: G25.81 Restless legs syndrome (principal); F31.9 Bipolar disorder, unspecified; F17.210 Nicotine dependence, cigarettes, uncomplicated; Z79.84 Long term (current) use of oral hypoglycemic drugs; Z79.899 Other long term (current) drug therapy
CPT/HCPCS: 99282

== ENCOUNTER 2024-09-27 01:25 | Emergency (ER) | payer MEDICAID, SELFPAY ==
[2024-09-27 01:25] VITALS: BP 109/66; PULSE 79; RESP 16; TEMP 36.6; O2SAT 100; BMI 22.6
[2024-09-27] MEDS: Fluorescein 1 MG STRIP 1 STRIP OPHTHALMIC (01:46)
[2024-09-27] MEDS: Tetracaine 0.5% Ophthalmic Bottle 1 DRP OPHTHALMIC (01:46)
--- NOTE | 2024-09-27 01:50 | EX.ED.VIS.EY ---
HPI History of Present Illness Chief Complaint: Eye Problem Informant: patient and spouse/S.O. Narrative Narrative: Left eye pain unable to remove contact. Splinting for 2 days. They are daily disposables. She has been wearing contact for years. Similar issue in the past earlier this month seen by myself. She only wears contact left eye with history of monovision. Prior similar symptoms: Yes PFSH PFS Medical History Restless leg syndrome Alcohol abuse Drug abuse in remission Depression Bipolar 1 disorder, depressed Home Medications ?Medication ?Instructions ?Recorded ?Last Taken ?Type dextromethorphan IR 45 1 tab PO DAILY 09/09/23 Unknown History mg-bupropion ER 105 mg biphasic tablet (Auvelity) lumateperone 42 mg capsule 42 mg PO DAILY 09/09/23 Unknown History (Caplyta) pramipexole 1 mg tablet 2 mg PO DAILY restless leg 09/09/23 09/09/23 History hydrocortisone 2.5 % topical cream 1 applic [place] TID PRN hemorrhoids 04/27/24 Unknown Rx with perineal applicator #30 grams (Anusol-HC) magnesium citrate 300 ml PO X1 PRN constipation #2 04/27/24 Unknown Rx BOTTLES aripiprazole 10 mg tablet 10 mg PO QHS 09/19/24 Unknown History atorvastatin 10 mg tablet 10 mg PO QHS 09/19/24 Unknown History benztropine 0.5 mg tablet 0.5 mg PO BID 09/19/24 Unknown History buspirone 10 mg tablet 10 mg PO BID 09/19/24 Unknown History cholecalciferol (vitamin D3) 125 125 mcg PO DAILY 09/19/24 Unknown History mcg (5,000 unit) capsule gabapentin 300 mg capsule 300 mg PO QHS 09/19/24 Unknown History hydroxyzine HCl 50 mg tablet 50 mg PO QHS PRN PRN sleep 09/19/24 Unknown History melatonin 3 mg tablet 3 - 6 mg PO QHS PRN PRN insomnia 09/19/24 Unknown History metformin 500 mg tablet,extended 500 mg PO DAILY 09/19/24 Unknown History release 24 hr multivitamin with folic acid 400 1 tab PO DAILY 09/19/24 Unknown History mcg tablet (High Potency Multivitamin) olanzapine 5 mg-samidorphan 10 mg 1 tab PO QHS 09/19/24 Unknown History tablet (Lybalvi) omeprazole 20 mg capsule,delayed 20 mg PO DAILY 09/19/24 Unknown History release polyethylene glycol 3350 17 g PO DAILY 09/19/24 Unknown History gram/dose oral powder (Gavilax) Allergy/AdvReac Type Severity Reaction Status Date / Time Penicillins Allergy PT UNSURE Verified 09/19/24 06:41 OF REACTION Surgical History Hx of tonsillectomy Hx of inguinal herniorrhaphy Hx of hemorrhoidectomy History of endometrial ablation Social History household members: none Smoking Status: Current every day smoker tobacco type: cigarettes ROS ROS ED Constitutional Constitutional ED: Denies chills, fever(s) or sweats Eyes Eyes: Reports blurry vision and other Details: Left eye pain Gastrointestinal Gastrointestinal: Denies nausea or vomiting Genitourinary Genitourinary ED: Denies dysuria, hematuria or urinary frequency Musculoskeletal Musculoskeletal: Denies back pain, extremity pain or neck pain Integumentary Denies rash or wounds Neurologic Neurologic: Denies headache(s), paresthesias or weakness EXAM Physical Exam Const Vital Signs: 09/27/24 01:25 Temperature 98 F Temperature Source Oral Pulse Rate 79 Respiratory Rate 16 Blood Pressure 109/66 Blood Pressure Mean 80 Pulse Ox 100 Positive well nourished and well developed Constitutional Narrative: Crying, nontoxic General Appearance ED: well developed HEENT Reports moist mucous membranes normocephalic and atraumatic Eyes Eyes Narrative: Left eye diffuse injection of the sclera. After tetracaine was instilled everted the eyelid no foreign body under eyelid, there was small hair removed from the cornea with moist Q-tips. Additional evaluation gentle Q-tip pressure was able to identify the contact lens and removed. Fluorescein was placed using a slit lamp there was pinpoint uptake cornea 7 o'clock position no ulcerations. Patient clinically felt better after contact was removed. Neck full ROM Chest Wall Chest: Negative for tenderness Resp normal respiratory effort and normal air movement Effort and Inspection: symmetric chest movement; Negative for respiratory distress Cardio regular rate, regular rhythm and no murmurs Peripheral Pulses: pulses 2+ throughout GI normal to inspection, nondistended, normoactive bowel sounds and non-tender Palpation: Negative for guarding or rebound tenderness present Extremity normal to inspection General Extremety ED: Negative for edema or tenderness General Extremity: Negative for edema Neuro oriented x3 and no sensory deficits noted Sensorium / Orientation: awake and alert Skin no rashes or lesions noted and no wounds MDM MDM MDM Narrative Medical decision making narrative: Interventions / MDM: Differential diagnosis: Stuck contact lens, conjunctivitis, foreign body removal Diagnosis considered but do not suspect: N/A My EKG interpretation: N/A Imaging independently reviewed and interpreted by myself: N/A External documents reviewed: N/A Test considered but not ordered:N/A ED course: Left eye injected. Contact lens was removed pinpoint uptake. She started on Cipro eyedrops. She will keep contact lens off given follow-up with ophthalmology. Visual acuity 20/30 OD, 20/40 OS, 20/30 OU. Re-evaluation: stable Disposition discussed with patient/family/significant other: Patient and significant other Case discussed with consulting clinician: N/A This note was generated with [employer] dictation software. It may contain incorrect words, spelling, and punctuation that were not noted in checking the note before signing. Discharge Plan Triage Chief Complaint: Eye Problem ED Provider: Don Rooney Dx/Rx/DC Orders Clinical Impression: Contact lens overwear of left eye, Conjunctivitis Instructions: ED Corneal Injury, Contact Lens Prescriptions: No Action Auvelity 45-105 mg tablet, IR and ER, biphasic 1 tab PO DAILY Patient Comments: TAKE ONE TABLET BY MOUTH EVERY MORNING Caplyta 42 mg capsule 42 mg PO DAILY Patient Comments: TAKE ONE TABLET BY MOUTH EVERY MORNING pramipexole 1 mg tablet 2 mg PO DAILY Patient Comments: take 1 tablet by mouth nightly hydrocortisone [Anusol-HC] 2.5 % cream with perineal applicator 1 applic AR TID PRN (Reason: hemorrhoids) Qty: 30 0RF magnesium citrate Solution 300 ml PO X1 PRN (Reason: constipation) Qty: 2 0RF benztropine 0.5 mg tablet 0.5 mg PO BID atorvastatin 10 mg tablet 10 mg PO QHS hydroxyzine HCl 50 mg tablet 50 mg PO QHS PRN PRN (Reason: sleep) buspirone 10 mg tablet 10 mg PO BID gabapentin 300 mg capsule 300 mg PO QHS cholecalciferol (vitamin D3) 125 mcg (5,000 unit) capsule 125 mcg PO DAILY aripiprazole 10 mg tablet 10 mg PO QHS melatonin 3 mg tablet 3 - 6 mg PO QHS PRN PRN (Reason: insomnia) omeprazole 20 mg capsule,delayed release(DR/EC) 20 mg PO DAILY polyethylene glycol 3350 [Gavilax] 17 gram/dose powder PO DAILY metformin 500 mg tablet extended release 24 hr 500 mg PO DAILY multivitamin with folic acid [High Potency Multivitamin] 400 mcg tablet 1 tab PO DAILY Lybalvi 5-10 mg tablet 1 tab PO QHS Primary Care Provider: Kaylee Raines Referrals: Reza Edgar MD [Med Staff - Active Staff] - 3-5 Days Kaylee Raines, SENIOR SCRUM MASTER-C [Primary Care Provider] - Activity Restrictions/Additional Instructions: Contact was removed to your left eye. Conjunctivitis noted, small and pinpoint uptakes were noted on the cornea. Use antibiotic drops 3 times a day. Avoid replacing contact at this time. Follow-up with eye clinic. Print Language: Khmer Disposition Disposition: Home, Self Care Discharge Date/Time: 09/27/24 02:02
[2024-09-27] MEDS: Ciprofloxacin 0.3% 2.5ml Bottle 1 DRP LEFT EYE (01:56)
[2024-09-27 02:00] VITALS: BP 110/66; PULSE 79; RESP 18; TEMP 36.8; O2SAT 100
== END 2024-09-27 02:02 | disposition home or self-care (01) ==
PROVIDERS: Emergency Provider Emergency Medicine; PCP Nurse Practitioner Family; Visit Provider Emergency Medicine
DX: T15.02XA Foreign body in cornea, left eye, initial encounter (principal); H44.7 Retained (old) intraocular foreign body, nonmagnetic; Y77.11 Contact lens associated with adverse incidents; H10.9 Unspecified conjunctivitis; F17.210 Nicotine dependence, cigarettes, uncomplicated; Z79.899 Other long term (current) drug therapy
CPT/HCPCS: 99283

== ENCOUNTER 2024-10-25 13:09 | Emergency (ER) | payer MEDICAID, SELFPAY ==
[2024-10-25 13:12] VITALS: BP 116/75; PULSE 100; RESP 14; TEMP 36.6; O2SAT 98; BMI 23.5
--- NOTE | 2024-10-25 13:41 | EX.ED.DYSGE1 ---
HPI History of Present Illness Chief Complaint: Meds Only Informant: patient Narrative Narrative: 54-year-old female presenting to the emergency room requesting refill of her restless leg medication. Patient states she has been out of her medicine for 2 weeks. She states that she has been calling her doctors office and supplementing the medicine with her gabapentin and buspirone. She states that today she was informed that she was being discharged from her primary care doctor's office that starts me in clinic for 4 no-show appointments. She states that that is inherently untrue and they are just saying that to discharge her from the practice. She states that she has a geriatric case manager at the [facility] ([facility] She states that she has access to a new primary care Dr. Regalado but is unsure of exactly where that sat. [facility] Medical History Restless leg syndrome Alcohol abuse Drug abuse in remission Depression Bipolar 1 disorder, depressed Home Medications ?Medication ?Instructions ?Recorded ?Last Taken ?Type dextromethorphan IR 45 1 tab PO DAILY 09/09/23 Unknown History mg-bupropion ER 105 mg biphasic tablet (Auvelity) lumateperone 42 mg capsule 42 mg PO DAILY 09/09/23 Unknown History (Caplyta) pramipexole 1 mg tablet 2 mg PO DAILY restless leg 09/09/23 09/09/23 History hydrocortisone 2.5 % topical cream 1 applic [place] TID PRN hemorrhoids 04/27/24 Unknown Rx with perineal applicator #30 grams (Anusol-HC) magnesium citrate 300 ml PO X1 PRN constipation #2 04/27/24 Unknown Rx BOTTLES aripiprazole 10 mg tablet 10 mg PO QHS 09/19/24 Unknown History atorvastatin 10 mg tablet 10 mg PO QHS 09/19/24 Unknown History benztropine 0.5 mg tablet 0.5 mg PO BID 09/19/24 Unknown History buspirone 10 mg tablet 10 mg PO BID 09/19/24 Unknown History cholecalciferol (vitamin D3) 125 125 mcg PO DAILY 09/19/24 Unknown History mcg (5,000 unit) capsule gabapentin 300 mg capsule 300 mg PO QHS 09/19/24 Unknown History hydroxyzine HCl 50 mg tablet 50 mg PO QHS PRN PRN sleep 09/19/24 Unknown History melatonin 3 mg tablet 3 - 6 mg PO QHS PRN PRN insomnia 09/19/24 Unknown History metformin 500 mg tablet,extended 500 mg PO DAILY 09/19/24 Unknown History release 24 hr multivitamin with folic acid 400 1 tab PO DAILY 09/19/24 Unknown History mcg tablet (High Potency Multivitamin) olanzapine 5 mg-samidorphan 10 mg 1 tab PO QHS 09/19/24 Unknown History tablet (Lybalvi) omeprazole 20 mg capsule,delayed 20 mg PO DAILY 09/19/24 Unknown History release polyethylene glycol 3350 17 g PO DAILY 09/19/24 Unknown History gram/dose oral powder (Gavilax) Allergy/AdvReac Type Severity Reaction Status Date / Time Penicillins Allergy PT UNSURE Verified 10/25/24 13:12 OF REACTION Surgical History Hx of tonsillectomy Hx of inguinal herniorrhaphy Hx of hemorrhoidectomy History of endometrial ablation Social History household members: none Smoking Status: Current every day smoker tobacco type: cigarettes ROS ROS ED Constitutional Constitutional ED: Denies chills or weight loss Eyes Eyes: Denies change in vision or diplopia ENT ENT ED: Denies ear pain, rhinorrhea or sore throat Cardiovascular Cardiovascular: Denies chest pain, orthopnea, palpitations or racing heartbeat Respiratory/Chest Respiratory/Chest: Denies cough, dyspnea or orthopnea Gastrointestinal Gastrointestinal: Denies abdominal pain, diarrhea, nausea or vomiting Genitourinary Genitourinary ED: Denies dysuria, hematuria or urinary frequency Musculoskeletal Musculoskeletal: Reports other Details: Leg pain from restless leg syndrome ; Denies arthralgias or myalgias Integumentary Denies abscess or rash Neurologic Neurologic: Denies headache(s) or weakness Psychiatric Psychiatric: Denies anxiety, depression, suicidal ideation or suicidal thoughts Endocrine Endocrinology: Denies polydipsia, polyphagia or polyuria Allergic/Immunologic Allergic/Immunologic ED: Denies mouth swelling, tongue swelling or urticaria EXAM Physical Exam Narrative Exam Narrative: Patient sitting in the bed. She does not seem to be able to sit still constantly moving her head torso arms and legs. She has a friend in the room with her who seems in the same way rocking back and forth in the chair. Const Vital Signs: 10/25/24 13:12 Temperature 98 F Temperature Source Temporal Pulse Rate 100 Respiratory Rate 14 Blood Pressure 116/75 Blood Pressure Mean 88 Pulse Ox 98 Oxygen Delivery Method Room Air Positive well nourished and well developed General Appearance ED: well developed HEENT Reports normocephalic, head/scalp atraumatic and moist mucous membranes Eyes PERRL and EOMs intact bilaterally Neck no lymphadenopathy, supple and no JVD Resp normal respiratory effort and clear to auscultation bilaterally Cardio regular rate, regular rhythm and no murmurs GI normal to inspection, nondistended, normoactive bowel sounds and non-tender Palpation: soft Back/Spine no CVA tenderness and normal ROM Extremity normal to inspection General Extremety ED: Negative for edema General Extremity: Negative for edema Neuro oriented x3 and CN's II-XII intact bilaterally Sensorium / Orientation: alert Motor Exam: strength 5/5 throughout Psych mental status grossly normal Psych Narrative: Patient has pressured speech but linear thinking. Mood & Affect: Negative for depressed or tearful Skin no rashes or lesions noted and no wounds MDM MDM MDM Narrative Medical decision making narrative: Differential diagnosis includes but not limited to restless leg syndrome medication withdrawal psychological and gia methamphetamine abuse Discussed with social work and to discuss with her geriatric case manager. I am happy to write for her Mirapex but long-term chan she needs to get primary care which I think her geriatric case manager can help us with. History & Record Review Discussion w/independent historian: Patient Management Discussion w/another healthcare provider: tear down worker/Case management Discharge Plan Triage Chief Complaint: Meds Only ED Provider: Seng Betancourt Dx/Rx/DC Orders Prescriptions: No Action Auvelity 45-105 mg tablet, IR and ER, biphasic 1 tab PO DAILY Patient Comments: TAKE ONE TABLET BY MOUTH EVERY MORNING Caplyta 42 mg capsule 42 mg PO DAILY Patient Comments: TAKE ONE TABLET BY MOUTH EVERY MORNING pramipexole 1 mg tablet 2 mg PO DAILY Patient Comments: take 1 tablet by mouth nightly hydrocortisone [Anusol-HC] 2.5 % cream with perineal applicator 1 applic MA TID PRN (Reason: hemorrhoids) Qty: 30 0RF magnesium citrate Solution 300 ml PO X1 PRN (Reason: constipation) Qty: 2 0RF benztropine 0.5 mg tablet 0.5 mg PO BID atorvastatin 10 mg tablet 10 mg PO QHS hydroxyzine HCl 50 mg tablet 50 mg PO QHS PRN PRN (Reason: sleep) buspirone 10 mg tablet 10 mg PO BID gabapentin 300 mg capsule 300 mg PO QHS cholecalciferol (vitamin D3) 125 mcg (5,000 unit) capsule 125 mcg PO DAILY aripiprazole 10 mg tablet 10 mg PO QHS melatonin 3 mg tablet 3 - 6 mg PO QHS PRN PRN (Reason: insomnia) omeprazole 20 mg capsule,delayed release(DR/EC) 20 mg PO DAILY polyethylene glycol 3350 [Gavilax] 17 gram/dose powder PO DAILY metformin 500 mg tablet extended release 24 hr 500 mg PO DAILY multivitamin with folic acid [High Potency Multivitamin] 400 mcg tablet 1 tab PO DAILY Lybalvi 5-10 mg tablet 1 tab PO QHS Primary Care Provider: Kaylee Raines Referrals: Kaylee Raines, QUALITY CONTROL AUDITOR-C [Primary Care Provider] - Print Language: [place] Citizen
[2024-10-25 13:55] VITALS: BP 114/89; PULSE 74; RESP 15; TEMP 36.8; O2SAT 99
--- NOTE | 2024-10-25 15:20 | CM.ED ---
Social work Reason for referral: pillowcase cutter follow up Referral source: Dr. Betancourt About 1345, this SW was approached by Dr. Betancourt with request to follow up with patient's pillowcase cutter, Jaron (from [facility]). Dr. Betancourt stated not having a problem with writing patient's prescription, but requested this SW call Jaron to share of patient's presentation and need for follow up. This SW called [facility] ([phone]) and asked the diesel engine pipe fitter to be transferred to Jaron. Jaron's voicemail stated being out of the office and stated following up with Jaron's supervisor agency appointments, [facility], would be best. [facility] Gypsy transferred this SW to Hina whose voicemail stated being out of the office. This SW left a voicemail requesting a return call. Hina returned call about 1515 and this SW updated on patient's presentation and discharge home with requested prescription. This SW also advised Hina that patient reported being fired from [facility] for missing appointments and did not have a new PCP appointment scheduled until some time in December. Hina stated passing along the above information to Jaron. Hina stated having difficulty reaching this patient and verified the phone number patient gave to [facility] registration. Hina stated no further needs at this time. Liliam Stewart, STOCK CLERK, GLASS MAKER
== END 2024-10-25 14:10 | disposition home or self-care (01) ==
LOC: ED 13:59
PROVIDERS: Emergency Provider Emergency Medicine; Visit Provider Emergency Medicine
DX: G25.81 Restless legs syndrome (principal); F17.210 Nicotine dependence, cigarettes, uncomplicated; Z79.899 Other long term (current) drug therapy
CPT/HCPCS: 99282